=== PATIENT | female | born 1940 | race Caucasian/White ===

== ENCOUNTER 2018-04-16 07:04 | Day surgery (SDC) | payer OTHER, SELFPAY ==
[2018-04-16] MEDS ORDERED: SOD FERRIC GLUC COMPLX/SUCROSE 125 MG in NA CHLORIDE 0.9% 100 ML IV ONE (08:00)
[2018-04-16] MEDS ORDERED: INFLIXIMAB-DYYB 400 MG in NA CHLORIDE 0.9% 250 ML IV ONE (09:00)
[2018-04-16 09:45] VITALS: BMI 32.3
[2018-04-16 10:03] VITALS: BP 121/59; TEMP 96.7; O2SAT 97
== END 2018-04-16 11:30 | disposition home or self-care (01) ==
LOC: DS 07:04
PROVIDERS: ATTEND Internal Medicine Gastroenterology
PROC: 3E0330M Introduction of Antineoplastic, Monoclonal Antibody, into Peripheral Vein, Percutaneous Approach (ICD-10-PCS; principal; 2018-04-16)
DX: K50.10 Crohn's disease of large intestine without complications (principal); D64.9 Anemia, unspecified
CPT/HCPCS: 96365; 96366; J2916; Q5102

== ENCOUNTER 2018-07-15 12:48 | Emergency (ER) | payer OTHER, SELFPAY ==
[2018-07-15] MEDS ORDERED: BISACODYL 10 MG RECTAL SUPP ONE (13:22)
[2018-07-15] MEDS ORDERED: NA CHLORIDE 0.9% 1,000 ML ONE ×2 (13:22→16:56)
[2018-07-15] MEDS ORDERED: LACTULOSE 20 GM/30 ML UCUP ONE (13:22)
[2018-07-15 13:56] LABS: Absolute Lymphocytes (CBC) 0.9 K/uL (0.7-4.9); Absolute Monocytes 0.5 K/uL (0.1-1.3); Absolute Neutrophil 5.2 K/uL (1.8-8.0); Basophils % 0.7 % (0-1.3); Eosinophils % 2.6 % (0-4.4); Hematocrit 35.5 % (36.0-45.0); Lymphocytes % 13.8 % (15.3-44.8); MCH 29.2 pg (27.0-35.0); MCV 86.8 fL (80-100); MPV 9.3 fL (7.6-11.3); Monocytes % 7.6 % (3.3-12.3); RBC Red Blood Cell Count 4.09 M/uL (3.86-4.86)
[2018-07-15 14:10] LABS: ALT/SGPT 19 U/L (12-78); AST/SGOT 28 U/L (15-37); Albumin 3.5 g/dL (3.4-5.0); Alkaline Phosphatase 47 U/L (45-117); BUN Blood Urea Nitrogen 18 mg/dL (7-18); Bicarbonate 27 mmol/L (21-32); Bilirubin Direct 0.2 mg/dL (0-0.2); Bilirubin Total 0.6 mg/dL (0.2-1.0); CKMB Creatine Kinase MB 6.9 ng/mL (0.3-3.6); Creatine Phosphokinase 153 U/L (26-192); Glucose Level 96 mg/dL (74-106); Lipase 391 U/L (73-393); Magnesium 2.4 mg/dL (1.8-2.4); NT PRO-BNP 725 pg/mL (<450); Potassium 4.5 mmol/L (3.5-5.1); Protein, Total 7.6 g/dL (6.4-8.2); Sodium Level 141 mmol/L (136-145); Troponin (Emerg Dept Use Only) < 0.02 ng/mL (0.0-0.045)
[2018-07-15 14:17] LABS: Protime INR 0.97
--- NOTE | 2018-07-15 14:25 | RAD REPORT ---
EXAM DESCRIPTION: RAD - Chest Single View - 07/15/2018 2:17 pm CLINICAL HISTORY: ABDOMINAL DISTENTION Chest pain. COMPARISON: Abdomen 1 View (KUB) dated 09/12/2016; Abdomen 1 View (KUB) dated 01/26/2016; ABDOMEN ACU TE SERIES dated 12/03/2013; CHEST SINGLE VIEW dated 04/14/2013 FINDINGS: Portable technique limits examination quality. The lungs are grossly clear. The heart is mildly enlarged in size. No displaced fractures. IMPRESSION: Mild cardiomegaly.
--- NOTE | 2018-07-15 15:30 | RAD REPORT ---
EXAM DESCRIPTION: CTAbdomen Pelvis W Contrast - 07/15/2018 3:11 pm CLINICAL HISTORY: Abdominal pain. ABD PAIN COMPARISON: CT ABD PELVIS W CONTRAST dated 12/03/2013 TECHNIQUE: Biphasic CT imaging of the abdomen and pelvis was performed with 100 ml non-ionic IV cont rast. All CT scans are performed using dose optimization technique as appropriate and may include automated exposure control or mA/KV adjustment according to patient size. FINDINGS: The lung bases are clear. The liver, spleen, pancreas, adrenal glands and kidneys are within normal limits. Benign 3.8 cm right renal cyst noted. No bowel obstruction, free air, free fluid or abscess. The large amount of stool is seen in the colon , particularly the rectosigmoid colon, compatible with fecal retention. Aortoiliac atherosclerosis. N o evidence of significant lymphadenopathy. No suspicious bony findings. IMPRESSION: Fecal impaction.
--- NOTE | 2018-07-15 16:09 | ER ---
Nurse's Notes [facility] Name: Mis Carpenter Age: 78 yrs Sex: Female : 1940 Arrival Date: 07/15/2018 Time: 12:49 Bed 26 Private MD: Jesus Estes Diagnosis: Constipation Presentation: 07/15 13:07 Presenting complaint: Patient states: Last BM five days ago, reports feels as if its sg right there and just needs to come out, has a hx of chrons and reports having had this problem in the past, denies pain/fever/vomiting/chills, reports liquid stool when attempts to have a BM. Transition of care: patient was not received from another setting of care. Onset of symptoms was July 15, 2018. Risk Assessment: Do you want to hurt yourself or someone else? Patient reports no desire to harm self or others. Initial Sepsis Screen: Does the patient meet any 2 criteria? No. Patient's initial sepsis screen is negative. Does the patient have a suspected source of infection? No. Patient's initial sepsis screen is negative. Care prior to arrival: None. 13:07 Method Of Arrival: Ambulatory sg 13:07 Acuity: PATI 3 sg Historical: - Allergies: 13:53 SUCCINYLCHOLINE; aj1 13:53 Codeine; aj1 - Home Meds: 14:04 Pentasa Oral [Active]; Klonopin Oral [Active]; "Parkinsons med" [Active]; aj1 - PSHx: 13:09 cardiac cath; Hysterectomy; hemmoroidectomy; Tubal ligation; key knee replacements; sg Appendectomy; - Immunization history:: Adult Immunizations up to date. - Social history:: Smoking status: Patient/guardian denies using tobacco. - Ebola Screening: : Patient negative for fever greater than or equal to 101.5 degrees Fahrenheit, and additional compatible Ebola Virus Disease symptoms Patient denies exposure to infectious person Patient denies travel to an Ebola-affected area in the 21 days before illness onset No symptoms or risks identified at this time. - Family history:: not pertinent. Screenin:49 Abuse screen: Denies threats or abuse. Denies injuries from another. Nutritional aj1 screening: No deficits noted. Tuberculosis screening: No symptoms or risk factors identified. 20:02 Fall Risk None identified. aj1 Assessment: 13:35 Reassessment: Patient states that she would like to finish drinking her contrast prior aj1 to being medicated or being assessed. 13:38 Reassessment: Patient has finished her contrast, notified cardiopulmonary technician. aj1 13:49 General: Appears in no apparent distress. uncomfortable, Behavior is calm, cooperative, aj1 appropriate for age. Pain: Complains of pain in abdomen diffusely Pain does not radiate. Pain currently is 9 out of 10 on a pain scale. Quality of pain is described as crampy, Pain began 5 days ago Is intermittent. Neuro: Level of Consciousness is awake, alert, obeys commands, Oriented to person, place, time, situation, Speech is normal. Cardiovascular: Patient's skin is warm and dry. Respiratory: Airway is patent Respiratory effort is even, unlabored, Respiratory pattern is regular, symmetrical. GI: Abdomen is non-distended, Abd is soft and non tender X 4 quads. Reports that she has felt constipated for the past 5 days. Reports that her stools are the same consistency as normal, but the amount is less and she is having a sensation of fullness. : No signs and/or symptoms were reported regarding the genitourinary system. EENT: No signs and/or symptoms were reported regarding the EENT system. Derm: No signs and/or symptoms reported regarding the dermatologic system. Skin is pink, warm \\T\\ dry. normal. Musculoskeletal: No signs and/or symptoms reported regarding the musculoskeletal system. Circulation, motion, and sensation intact. 14:00 Reassessment: Patient states that suppositories never work for her, she has already aj1 tried that at home and it doesn't help. Patient states she would like to speak with the Dr prior to taking any medications. Notified Dr. Grady. 15:00 Reassessment: Patient states that she is getting impatient and would like to speak with aj1 the doctor. Notified Dr. Grady. 15:30 Reassessment: Dr. Grady at bedside. aj1 15:36 Reassessment: Patient states that she would like to go to the restroom to urinate prior aj1 to taking any more medications. Assisted patient to restroom, patient ambulated to restroom with minimal assistance, tolerated well. 15:50 Reassessment: Patient assisted back to bed, ambulated to room with minimal assistance, ajSaeed tolerated well. 16:00 Reassessment: Patient states that she is worried that when she has to have a BM that aj1 she will not be able to make it to the bathroom on time. Patient provided with a bedside commode, call light within reach. 16:30 Reassessment: Patient states that her blood pressure cuff is uncomfortable. Assisted aj1 patient in adjusting blood pressure cuff to be more comfortable. 16:40 Reassessment: Patient is concerned because she has not had a bowel movement yet. She ajSaeed does not want to be discharged because she has not had a bowel movement. Notified Dr. Grady of patient concern. 17:10 Reassessment: Patient is upset that she still has not had a bowel movement, and the aj1 doctor has not come back. Patient also states that she does not understand why she is getting IV fluids because she drinks a lot of water. Patient was asked if she would like to have IV fluids discontinued and patient states she is fine with them continuing the infusion. Notified Dr. Grady that the patient would like to speak with him. 17:45 Reassessment: Patient states that she is uncomfortable on the stretcher. Patient aj1 assisted to a more comfortable position, with the head of the bed at a higher level. Patient tolerated well. 18:30 Reassessment: Patient appears in no apparent distress at this time. No changes from aj1 previously documented assessment. Patient and/or family updated on plan of care and expected duration. Pain level reassessed. Patient is alert, oriented x 3, equal unlabored respirations, skin warm/dry/pink. Dr. Grady at bedside. 18:40 Reassessment: Patient assisted to [facility] by NIMCO Mahan. Patient tolerated well. aj1 18:45 Reassessment: Patient states that the rectal exam Dr. Grady did, did not help her. aj1 She would like to speak with him again. Notified Dr. Grady of patient request. 19:00 Reassessment: Dr. Grady at bedside to talk to patient. aj1 19:20 Reassessment: Patient states that she needs some briefs to go home with, because she aj1 accidentally went to the bathroom on the clothes she came in. Patient provided with a brief and hospital gown to travel home in. Vital Signs: 13:09 BP 105 / 48; Pulse 87; Resp 16; Temp 97.9; Pulse Ox 100% on R/A; jp3 14:00 BP 125 / 71 RA Sitting (auto/lg); Pulse 65; Resp 20 S; Pulse Ox 97% on R/A; Pain 3/10; jp3 15:16 BP 118 / 58 RA Sitting (auto/lg); Pulse 72; Resp 20; Pulse Ox 96% on R/A; jp3 16:16 BP 140 / 81; Pulse 73; Resp 18; Pulse Ox 96% on R/A; aj1 17:01 BP 134 / 75; Pulse 62; Resp 18; Pulse Ox 95% on R/A; aj1 18:24 BP 157 / 87; Pulse 75; Resp 18; Pulse Ox 96% on R/A; aj1 ED Course: 12:49 Patient arrived in ED. sb2 12:49 Jesus Estes DO is Private Physician. sb2 13:08 Triage completed. sg 13:09 Arm band placed on. sg 13:10 Jose Grady MD is Attending Physician. ashli 13:12 Mariana Pete, RN is Primary Nurse. aj1 13:20 Initial lab(s) drawn, by sc, sent to lab. Inserted saline lock: 22 gauge in left jp3 antecubital area, using aseptic technique. Blood collected. 13:34 Lipase Sent. jp3 13:34 Basic Metabolic Panel Sent. jp3 13:34 CBC with Diff Sent. jp3 13:35 Ckmb Sent. jp3 13:35 CPK Sent. jp3 13:35 LFT's Sent. jp3 13:35 Magnesium Sent. jp3 13:35 NT PRO-BNP Sent. jp3 13:35 PT-INR Sent. jp3 13:35 Ptt, Activated Sent. jp3 13:35 Troponin (emerg Dept Use Only) Sent. jp3 13:36 Bed in low position. Call light in reach. Side rails up X 1. occup therapist on. Pulse jp3 ox on. NIBP on. 13:39 EKG done, by install technician. reviewed by Jose Grady MD. sm3 13:51 No provider procedures requiring assistance completed. aj1 14:00 Warm blanket given. jp3 14:18 XRAY Chest (1 view) In Process Unspecified. EDMS 15:12 CT Abd/Pelvis - W/Contrast In Process Unspecified. EDFL 16:08 Jesus Estes DO is Referral Physician. [facility] 16:08 Lobito Ramos MD is Referral Physician. [facility] 20:01 IV discontinued, intact, bleeding controlled, No redness/swelling at site. Pressure aj1 dressing applied. Administered Medications: 15:35 Drug: Lactulose 30 grams Volume: 45 ml; Route: PO; aj1 20:03 Follow up: Response: No adverse reaction aj1 16:00 Drug: Dulcolax Suppository 10 mg Route: NM; aj1 20: Follow up: Response: No adverse reaction; No change in condition aj1 16:00 Drug: NS 0.9% 500 ml Route: IV; Rate: bolus; Site: left antecubital; aj1 17:00 Follow up: IV Status: Completed infusion; IV Intake: 500ml aj1 16:00 Drug: NS 0.9% 1000 ml Route: IV; Rate: 125 ml/hr; Site: left antecubital; aj1 20:04 Follow up: IV Status: Completed infusion; IV Intake: 500ml aj1 Intake: 17:00 IV: 500ml; Total: 500ml. aj1 20:04 IV: 500ml; Total: 1000ml. aj1 Outcome: 16:08 Discharge ordered by . [facility] 20:03 Discharged to home via wheelchair. aj1 20:03 Condition: stable 20:03 Discharge instructions given to patient, family, Instructed on discharge instructions, follow up and referral plans. medication usage, Demonstrated understanding of instructions, follow-up care, medications, Prescriptions given X 3. 20:04 Patient left the ED. aj1 Signatures: Dispatcher [employer] EDMS Mariana Pete, RN RN aj1 Enzo Phillip, ZEHRA RN Jose Marcano MD MD cha Billeau, Sheri sb2 Yesica Blackman 3 Jean Garsia jp3 Corrections: (The following items were deleted from the chart) 14:07 13:09 Pulse 87bpm; Resp 16bpm; Pulse Ox 100% RA; Temp 97.9F; sg jp3
--- NOTE | 2018-07-15 16:09 | EDPHYS ---
Physician Documentation [facility] Name: Mis Carpenter Age: 78 yrs Sex: Female : 1940 Arrival Date: 07/15/2018 Time: 12:49 Bed 26 Private MD: Jesus Estes ED Physician Jose Grady HPI: 07/15 15:25 This 78 yrs old Female presents to ER via Ambulatory with complaints of ashli Constipation. 15:25 The patient presents with abdominal pain in the upper abdomen, in the lower abdomen, ashli abdominal distention in the upper abdomen, in the lower abdomen. Onset: The symptoms/episode began/occurred 6 day(s) ago. The symptoms do not radiate. Associated signs and symptoms: none. The symptoms are described as crampy. Severity of pain: At its worst the pain was mild in the emergency department the pain is unchanged. The patient has not experienced similar symptoms in the past. Historical: - Allergies: 13:53 SUCCINYLCHOLINE; aj1 13:53 Codeine; aj1 - Home Meds: 14:04 Pentasa Oral [Active]; Klonopin Oral [Active]; "Parkinsons med" [Active]; aj1 - PSHx: 13:09 cardiac cath; Hysterectomy; hemmoroidectomy; Tubal ligation; key knee replacements; sg Appendectomy; - Immunization history:: Adult Immunizations up to date. - Social history:: Smoking status: Patient/guardian denies using tobacco. - Ebola Screening: : Patient negative for fever greater than or equal to 101.5 degrees Fahrenheit, and additional compatible Ebola Virus Disease symptoms Patient denies exposure to infectious person Patient denies travel to an Ebola-affected area in the 21 days before illness onset No symptoms or risks identified at this time. - Family history:: not pertinent. ROS: 15:25 Constitutional: Negative for fever, chills, and weight loss, Eyes: Negative for injury, ashli pain, redness, and discharge, ENT: Negative for injury, pain, and discharge, Neck: Negative for injury, pain, and swelling, Cardiovascular: Negative for chest pain, palpitations, and edema, Respiratory: Negative for shortness of breath, cough, wheezing, and pleuritic chest pain, Back: Negative for injury and pain, : Negative for injury, bleeding, discharge, and swelling, MS/Extremity: Negative for injury and deformity, Skin: Negative for injury, rash, and discoloration, Neuro: Negative for headache, weakness, numbness, tingling, and seizure, Psych: Negative for depression, anxiety, suicide ideation, homicidal ideation, and hallucinations, Allergy/Immunology: Negative for hives, rash, and allergies, Endocrine: Negative for neck swelling, polydipsia, polyuria, polyphagia, and marked weight changes. 15:25 Abdomen/GI: Positive for abdominal pain, nausea, of the right upper quadrant, left upper quadrant, right lower quadrant and left lower quadrant. Exam: 15:25 Constitutional: This is a well developed, well nourished patient who is awake, alert, ashli and in no acute distress. Head/Face: Normocephalic, atraumatic. Eyes: Pupils equal round and reactive to light, extra-ocular motions intact. Lids and lashes normal. Conjunctiva and sclera are non-icteric and not injected. Cornea within normal limits. Periorbital areas with no swelling, redness, or edema. ENT: Nares patent. No nasal discharge, no septal abnormalities noted. Tympanic membranes are normal and external auditory canals are clear. Oropharynx with no redness, swelling, or masses, exudates, or evidence of obstruction, uvula midline. Mucous membranes moist. Neck: Trachea midline, no thyromegaly or masses palpated, and no cervical lymphadenopathy. Supple, full range of motion without nuchal rigidity, or vertebral point tenderness. No Meningismus. Chest/axilla: Normal chest wall appearance and motion. Nontender with no deformity. No lesions are appreciated. Cardiovascular: Regular rate and rhythm with a normal S1 and S2. No gallops, murmurs, or rubs. Normal PMI, no JVD. No pulse deficits. Respiratory: Lungs have equal breath sounds bilaterally, clear to auscultation and percussion. No rales, rhonchi or wheezes noted. No increased work of breathing, no retractions or nasal flaring. Back: No spinal tenderness. No costovertebral tenderness. Full range of motion. Skin: Warm, dry with normal turgor. Normal color with no rashes, no lesions, and no evidence of cellulitis. MS/ Extremity: Pulses equal, no cyanosis. Neurovascular intact. Full, normal range of motion. Neuro: Awake and alert, GCS 15, oriented to person, place, time, and situation. Cranial nerves II-XII grossly intact. Motor strength 5/5 in all extremities. Sensory grossly intact. Cerebellar exam normal. Normal gait. Psych: Awake, alert, with orientation to person, place and time. Behavior, mood, and affect are within normal limits. 15:25 Abdomen/GI: Inspection: abdomen appears normal, Bowel sounds: normal, Palpation: mild abdominal tenderness, in all quadrants, Liver: no appreciated palpable abnormalities, Hernia: not appreciated. Vital Signs: 13:09 BP 105 / 48; Pulse 87; Resp 16; Temp 97.9; Pulse Ox 100% on R/A; jp3 14:00 BP 125 / 71 RA Sitting (auto/lg); Pulse 65; Resp 20 S; Pulse Ox 97% on R/A; Pain 3/10; jp3 15:16 BP 118 / 58 RA Sitting (auto/lg); Pulse 72; Resp 20; Pulse Ox 96% on R/A; jp3 16:16 BP 140 / 81; Pulse 73; Resp 18; Pulse Ox 96% on R/A; aj1 17:01 BP 134 / 75; Pulse 62; Resp 18; Pulse Ox 95% on R/A; aj1 18:24 BP 157 / 87; Pulse 75; Resp 18; Pulse Ox 96% on R/A; aj1 MDM: 13:10 Patient medically screened. [facility] 15:29 Data reviewed: vital signs, nurses notes, lab test result(s), EKG, radiologic studies, [facility] CT scan, plain films. 07/15 13:09 Order name: Basic Metabolic Panel; Complete Time: 15:33 [facility] 07/15 13:09 Order name: CBC with Diff; Complete Time: 15:33 [facility] 07/15 13:09 Order name: Ckmb; Complete Time: 15:33 [facility] 07/15 13:09 Order name: CPK; Complete Time: 15:33 [facility] 07/15 13:09 Order name: LFT's; Complete Time: 15:33 [facility] 07/15 13:09 Order name: Magnesium; Complete Time: 15:33 [facility] 07/15 13:09 Order name: NT PRO-BNP; Complete Time: 15:33 [facility] 07/15 13:09 Order name: PT-INR; Complete Time: 15:33 [facility] 07/15 13:09 Order name: Ptt, Activated; Complete Time: 15:33 [facility] 07/15 13:09 Order name: Troponin (emerg Dept Use Only); Complete Time: 15:33 [facility] 07/15 13:09 Order name: XRAY Chest (1 view); Complete Time: 15:33 [facility] 07/15 13:09 Order name: Lipase; Complete Time: 15:33 [facility] 07/15 13:10 Order name: Urine Culture [facility] 07/15 16:28 Order name: Urine Dipstick--Ancillary (enter results) 07/15 13:09 Order name: EKG; Complete Time: 13:10 [facility] 07/15 13:09 Order name: Cardiac monitoring; Complete Time: 14:05 [facility] 07/15 13:09 Order name: EKG - Nurse/Tech; Complete Time: 13:33 [facility] 07/15 13:09 Order name: IV Saline Lock; Complete Time: 13:33 [facility] 07/15 13:09 Order name: Labs collected and sent; Complete Time: 13:33 [facility] 07/15 13:09 Order name: O2 Per Protocol; Complete Time: 13:33 [facility] 07/15 13:09 Order name: O2 Sat Monitoring; Complete Time: 13:33 [facility] 07/15 13:09 Order name: Urine Dipstick-Ancillary (obtain specimen); Complete Time: 17:43 [facility] 07/15 13:09 Order name: CT Abd/Pelvis - W/Contrast; Complete Time: 15:33 [facility] Administered Medications: 15:35 Drug: Lactulose 30 grams Volume: 45 ml; Route: PO; aj1 20:03 Follow up: Response: No adverse reaction aj1 16:00 Drug: Dulcolax Suppository 10 mg Route: TX; aj1 20:03 Follow up: Response: No adverse reaction; No change in condition aj1 16:00 Drug: NS 0.9% 500 ml Route: IV; Rate: bolus; Site: left antecubital; aj1 17:00 Follow up: IV Status: Completed infusion; IV Intake: 500ml aj1 16:00 Drug: NS 0.9% 1000 ml Route: IV; Rate: 125 ml/hr; Site: left antecubital; aj1 20:04 Follow up: IV Status: Completed infusion; IV Intake: 500ml aj Disposition: 07/15/18 16:08 Discharged to Home. Impression: Constipation. - Condition is Stable. - Discharge Instructions: Constipation, Adult, How to Take a Sitz Bath, Fecal Impaction. - Prescriptions for Lactulose 10 gram/15 mL Oral Solution - take 30 milliliter by ORAL route once daily; 300 milliliter. Dulcolax 10 mg Rectal Suppository - insert 1 suppository by RECTAL route every 12 hours As needed; 10 suppository. Miralax 17 gram/dose Oral - take 1 packet by ORAL route once daily dilute powder in 8 ounces of water or juice; 14 packet. - Medication Reconciliation Form, Thank You Letter, Antibiotic Education, Prescription Opioid Use form. - Follow up: Jesus Estes DO; When: 2 - 3 days; Reason: Recheck today's complaints, Continuance of care, Re-evaluation by your physician. Follow up: Lobito Ramos MD; When: 2 - 3 days; Reason: Recheck today's complaints, Continuance of care, Re-evaluation by your physician. - Problem is new. - Symptoms have improved. Signatures: Dispatcher [employer] EDRI Mariana Pete RN RN aj1 Enzo Phillip RN RN Jose Grady MD MD cha Corrections: (The following items were deleted from the chart) 20:04 16:08 07/15/2018 16:08 Discharged to Home. Impression: Constipation. Condition is aj1 Stable. Forms are Medication Reconciliation Form, Thank You Letter, Antibiotic Education, Prescription Opioid Use. Follow up: Jesus Estes; When: 2 - 3 days; Reason: Recheck today's complaints, Continuance of care, Re-evaluation by your physician. Follow up: Lobito Ramos; When: 2 - 3 days; Reason: Recheck today's complaints, Continuance of care, Re-evaluation by your physician. Problem is new. Symptoms have improved. ashli
[2018-07-15 16:31] LABS: Urine Blood NEGATIVE (NEG); Urine Glucose NEGATIVE (NEG); Urine Protein NEGATIVE (NEG); Urine pH 5.5 (5.0-7.0)
--- NOTE | 2018-07-15 19:24 | EKG ---
Test Date: 2018-07-15 Test Time: 13:25:38 Newcomer Hostess: LARA MEASUREMENT RESULTS: Intervals: Rate: 62 NM: 136 QRSD: 88 QT: 396 QTc: 401 [place]: P: 25 NM: 136 QRS: -11 T: 26 INTERPRETIVE STATEMENTS: Normal sinus rhythm Minimal voltage criteria for LVH, may be normal variant Possible Anterior infarct, age undetermined Abnormal ECG Compared to ECG 04/14/2013 13:59:41 Left ventricular hypertrophy now present Myocardial infarct finding now present Electronically Signed On 07-15-18 19:22:46 CDT by Derek Reilly
[2018-07-15 20:12] VITALS: TEMP 97.9
[2018-07-15 20:17] VITALS: BP 157/87; O2SAT 96
== END 2018-07-15 20:04 | disposition home or self-care (01) ==
LOC: ER 12:48
DX: K59.00 Constipation, unspecified (principal); G20 Parkinson's disease; Z88.5 Allergy status to narcotic agent; Z88.8 Allergy status to other drugs, medicaments and biological substances
CPT/HCPCS: 36415; 71045; 74177; 80048; 80076; 81003; 82550; 82553; 83690; 83735; 83880; 84484; 85025; 85610; 85730; 87086; 87088; 93005; 96360; 96361; 99285; J7030 ×2; Q9967

== ENCOUNTER 2018-10-18 08:23 | Day surgery (SDC) | payer OTHER, SELFPAY ==
[2018-10-18] MEDS ORDERED: INFLIXIMAB-DYYB 400 MG in NA CHLORIDE 0.9% 250 ML IV ONE (09:00)
[2018-10-18 13:29] VITALS: BP 114/38; TEMP 98; O2SAT 94
== END 2018-10-18 12:00 | disposition home or self-care (01) ==
LOC: DS 08:23
PROVIDERS: ATTEND Internal Medicine Gastroenterology
DX: K50.90 Crohn's disease, unspecified, without complications (principal)
CPT/HCPCS: 96365; 96366; Q5103

== ENCOUNTER 2018-11-23 15:49 | Emergency (ER) | payer OTHER, SELFPAY ==
--- NOTE | 2018-11-23 17:01 | RAD REPORT ---
EXAM DESCRIPTION: CT - Head Brain Wo Cont - 11/23/2018 4:37 pm CLINICAL HISTORY: Weakness, multiple falls, head injury COMPARISON: None. TECHNIQUE: Axial 5 mm thick images of the head were obtained without IV contrast. All CT scans are performed using dose optimization technique as appropriate and may include automated exposure control or mA/KV adjustment according to patient size. FINDINGS: No intracranial hemorrhage, mass, edema or shift of mid-line structures. No acute infarcti on changes seen. Mild to moderate atrophy and chronic ischemic changes. Ventricles are in proportion to volume loss. Arterial and physiologic calcifications are present. Mastoid air cells and visualized portions of the paranasal sinuses are clear. No acute bony findings. IMPRESSION: Negative non-contrast CT head examination for acute finding. Mild to moderate atrophy and chronic ischemic change.
[2018-11-23 17:19] LABS: Absolute Lymphocytes (CBC) 1.8 K/uL (0.7-4.9); Absolute Neutrophil 6.7 K/uL (1.8-8.0); Eosinophils % 3.8 % (0-4.4); Hematocrit 39.9 % (36.0-45.0); Lymphocytes % 17.9 % (15.3-44.8); MPV 9.8 fL (7.6-11.3); RBC Red Blood Cell Count 4.85 M/uL (3.86-4.86)
[2018-11-23] MEDS ORDERED: NA CHLORIDE 0.9% 500 ML ONE ×2 (17:21→19:02)
[2018-11-23 17:46] LABS: Potassium 4.5 mmol/L (3.5-5.1); Thyroid Stimulating Hormone 2.89 uIU/mL (0.360-3.740)
--- NOTE | 2018-11-23 18:20 | ER ---
Nurse's Notes [facility] Name: Mis Carpenter Age: 78 yrs Sex: Female : 1940 Arrival Date: 11/23/2018 Time: 15:49 Bed 5 Private MD: Jesus Estes Diagnosis: Dehydration Presentation: 11/23 16:13 Presenting complaint: Patient states: Weakness for 2-3 days, reports had blood work sg recently in September and everything was fine, well recently had blood work and the doctor told me to get to the ER for evaluation due to lab results, pt reports having fallen several times, bruising noted to the right side of face right shoulder and right forearm with a dressing that was applied yesterday per success coach. Transition of care: patient was not received from another setting of care. Onset of symptoms was November 21, 2018. Risk Assessment: Do you want to hurt yourself or someone else? Patient reports no desire to harm self or others. Initial Sepsis Screen: Does the patient meet any 2 criteria? No. Patient's initial sepsis screen is negative. Does the patient have a suspected source of infection? No. Patient's initial sepsis screen is negative. Care prior to arrival: None. 16:13 Method Of Arrival: Wheelchair sg 16:13 Acuity: PATI 3 sg Historical: - Allergies: 16:17 Codeine; sg 16:17 SUCCINYLCHOLINE; sg - PSHx: 16:17 cardiac cath; Hysterectomy; hemmoroidectomy; Tubal ligation; key knee replacements; sg Appendectomy; - Immunization history:: Adult Immunizations up to date. - Family history:: not pertinent. - Ebola Screening: : Patient denies travel to an Ebola-affected area in the 21 days before illness onset. - Social history:: Smoking status: Patient/guardian denies using tobacco. - Hospitalizations: : No recent hospitalization is reported. Screenin:15 Abuse screen: Denies threats or abuse. Denies injuries from another. Nutritional aj1 screening: No deficits noted. Tuberculosis screening: No symptoms or risk factors identified. 20:25 Fall Risk Fall in past 12 months (25 points). No secondary diagnosis (0 pts). No IV (0 aj1 pts). Ambulatory Aid- Crutches/Cane/Walker (15 pts). Gait- Weak (10 pts.). Mental Status- Oriented to own ability (0 pts). Total Mathews Fall Scale indicates High Risk Score (45 or more points). As available patient and family educated on Fall Prevention Program and Strategies. Assessment: 16:15 General: Appears in no apparent distress. comfortable, Behavior is calm, cooperative, aj1 appropriate for age. Neuro: Level of Consciousness is awake, alert, obeys commands, Oriented to person, place, time, situation, Moves all extremities. Weakness Speech is normal, Facial symmetry appears normal, Reports generalized weakness. Cardiovascular: Patient's skin is warm and dry. Respiratory: Airway is patent Respiratory effort is even, unlabored, Respiratory pattern is regular, symmetrical. GI: No signs and/or symptoms were reported involving the gastrointestinal system. : No signs and/or symptoms were reported regarding the genitourinary system. EENT: No signs and/or symptoms were reported regarding the EENT system. Derm: Bruising that is on forehead, right eye and anterior aspect of right shoulder. Derm: Skin is pink, warm \T\ dry. normal. Musculoskeletal: No signs and/or symptoms reported regarding the musculoskeletal system. Circulation, motion, and sensation intact. 16:30 Reassessment: Patient transported to CT via stretcher. aj1 17:30 Reassessment: Patient appears in no apparent distress at this time. No changes from aj1 previously documented assessment. Patient and/or family updated on plan of care and expected duration. Pain level reassessed. Patient is alert, oriented x 3, equal unlabored respirations, skin warm/dry/pink. Patient reports continued feelings of dizziness and weakness. 17:30 Reassessment: Patient appears in no apparent distress at this time. No changes from aj1 previously documented assessment. Patient and/or family updated on plan of care and expected duration. Pain level reassessed. Patient is alert, oriented x 3, equal unlabored respirations, skin warm/dry/pink. 18:30 Reassessment: Patient appears in no apparent distress at this time. No changes from aj1 previously documented assessment. Patient and/or family updated on plan of care and expected duration. Pain level reassessed. Patient is alert, oriented x 3, equal unlabored respirations, skin warm/dry/pink. 19:30 Reassessment: Patient appears in no apparent distress at this time. No changes from aj1 previously documented assessment. Patient and/or family updated on plan of care and expected duration. Pain level reassessed. Patient is alert, oriented x 3, equal unlabored respirations, skin warm/dry/pink. Patient states that she is feeling much better now and she is ready to go home as soon as her fluids are finished. Vital Signs: 16:15 BP 102 / 70; Pulse 78; Resp 19 S; Temp 97.7; Pulse Ox 94% on R/A; Weight 97.52 kg; sg Height 5 ft. 2 in. (157.48 cm); Pain 3/10; 17:20 BP 88 / 62; Pulse 65; Resp 18; Pulse Ox 97% ; aj1 17:29 BP 94 / 67; Pulse 60; Resp 18; Pulse Ox 99% on R/A; aj1 17:35 BP 107 / 84; Pulse 67; Resp 18; Pulse Ox 100% on R/A; aj1 18:30 BP 99 / 67; Pulse 62; Resp 18; Pulse Ox 99% on R/A; aj1 19:05 BP 111 / 56; Pulse 65; Resp 18; Pulse Ox 97% on R/A; aj1 20:08 BP 114 / 59; Pulse 70; Resp 18; Pulse Ox 97% on R/A; aj1 16:15 Body Mass Index 39.32 (97.52 kg, 157.48 cm) ED Course: 15:49 Patient arrived in ED. as 15:50 Jesus Estes DO is Private Physician. as 16:05 Robert Marx MD is Attending Physician. rn 16:11 Mariana Pete RN is Primary Nurse. aj1 16:15 Triage completed. sg 16:15 Arm band placed on. sg 16:15 No provider procedures requiring assistance completed. aj1 16:30 Missed attempt(s): 22 gauge in left antecubital area. Bleeding controlled, band aid aj1 applied, catheter tip intact. 16:36 CT completed. Patient moved to CT via stretcher. Patient moved back from CT. bq 16:37 CT Head Brain wo Cont In Process Unspecified. EDMS 17:31 Patient has correct armband on for positive identification. aj1 18:20 Jesus Estes DO is Referral Physician. rn 20:24 IV discontinued, intact, bleeding controlled, No redness/swelling at site. Pressure aj1 dressing applied. Administered Medications: 17:32 Drug: NS 0.9% 500 ml Route: IV; Rate: bolus; Site: left forearm; aj1 19:03 Drug: NS 0.9% 500 ml Route: IV; Rate: bolus; Site: right antecubital; aj1 Outcome: 18:20 Discharge ordered by MD. rn 20:25 Discharged to home via wheelchair, with family. aj1 20:25 Condition: stable 20:25 Discharge instructions given to patient, Instructed on discharge instructions, follow up and referral plans. Demonstrated understanding of instructions, follow-up care. 20:26 Patient left the ED. aj1 Signatures: Dispatcher [employer] EDMS Mariana Pete RN RN aj1 Enzo Phillip RN RN sg Quilty, Betty bq Martinez, Amelia as Nieto, Roman, MD MD engine turner: (The following items were deleted from the chart) :34 16:32 General: Appears in no apparent distress. comfortable, Behavior is calm, aj1 cooperative, appropriate for age, aj1 :34 16:32 Neuro: Level of Consciousness is awake, alert, obeys commands, Oriented to aj1 person, place, time, situation, Moves all extremities. Weakness Speech is normal, Facial symmetry appears normal, Reports generalized weakness. aj1 16:34 16:32 Cardiovascular: Patient's skin is warm and dry. aj1 aj1 16:34 16:32 Respiratory: Airway is patent Respiratory effort is even, unlabored, Respiratory aj1 pattern is regular, symmetrical, aj1 16:34 16:32 GI: No signs and/or symptoms were reported involving the gastrointestinal system. aj1 aj1 16:34 16:32 : No signs and/or symptoms were reported regarding the genitourinary system. aj1aj1 16:34 16:32 EENT: No signs and/or symptoms were reported regarding the EENT system. aj1 aj1 16:34 16:32 Derm: Skin is pink, warm \T\ dry. normal, aj1 aj1 16:34 16:32 Musculoskeletal: No signs and/or symptoms reported regarding the musculoskeletal aj1 system. Circulation, motion, and sensation intact. aj1 16:34 16:32 Derm: Bruising that is on forehead, right eye and anterior aspect of right aj1 shoulder aj1
--- NOTE | 2018-11-23 18:21 | EDPHYS ---
Physician Documentation [facility] Name: Mis Carpenter Age: 78 yrs Sex: Female : 1940 Arrival Date: 11/23/2018 Time: 15:49 Bed 5 Private MD: Jesus Estes ED Physician Robert Marx HPI: 11/23 16:17 This 78 yrs old Female presents to ER via Wheelchair with complaints of rn Weakness. 16:17 The patient presents to the emergency department with weakness of the entire body, rn generalized weakness. Onset: The symptoms/episode began/occurred 3 week(s) ago. Severity of symptoms: At their worst the symptoms were moderate in the emergency department the symptoms are unchanged. The patient has not experienced similar symptoms in the past. Reports generalized weakness, began 3 weeks ago, has hx of crohn's and reports has been anemic before. + recurrent falls lately, last one a few days ago with facial bruising. Denies blood in stool, no emesis, no abd pain/chest pain/sob. . Historical: - Allergies: 16:17 Codeine; sg 16:17 SUCCINYLCHOLINE; sg - PSHx: 16:17 cardiac cath; Hysterectomy; hemmoroidectomy; Tubal ligation; key knee replacements; sg Appendectomy; - Immunization history:: Adult Immunizations up to date. - Family history:: not pertinent. - Ebola Screening: : Patient denies travel to an Ebola-affected area in the 21 days before illness onset. - Social history:: Smoking status: Patient/guardian denies using tobacco. - Hospitalizations: : No recent hospitalization is reported. ROS: 16:17 Constitutional: Negative for fever, chills, and weight loss, Eyes: Negative for injury, rn pain, redness, and discharge, Neck: Negative for injury, pain, and swelling, Cardiovascular: Negative for chest pain, palpitations, and edema, Respiratory: Negative for cough, wheezing, and pleuritic chest pain, Abdomen/GI: Negative for abdominal pain, nausea, vomiting, diarrhea, and constipation, MS/Extremity: Negative for injury and deformity, Skin: Negative for injury, rash, and discoloration, Neuro: Negative for headache, numbness, tingling, and seizure. Exam: 16:17 Constitutional: This is a well developed, well nourished patient who is awake, alert, rn and in no acute distress. Head/Face: Normocephalic, atraumatic. Eyes: Pupils equal round and reactive to light, extra-ocular motions intact. Cardiovascular: Regular rate and rhythm, No pulse deficits. Respiratory: Lungs have equal breath sounds bilaterally, clear to auscultation. No increased work of breathing, no retractions or nasal flaring. Abdomen/GI: soft, non-tender MS/ Extremity: Pulses equal, no cyanosis. Neurovascular intact. Full, normal range of motion. Equal circumference. Neuro: Awake and alert, GCS 15, oriented to person, place, time, and situation. Cranial nerves II-XII grossly intact. Motor strength 4/5 in all extremities. Sensory grossly intact. Vital Signs: 16:15 BP 102 / 70; Pulse 78; Resp 19 S; Temp 97.7; Pulse Ox 94% on R/A; Weight 97.52 kg; sg Height 5 ft. 2 in. (157.48 cm); Pain 3/10; 17:20 BP 88 / 62; Pulse 65; Resp 18; Pulse Ox 97% ; aj1 17:29 BP 94 / 67; Pulse 60; Resp 18; Pulse Ox 99% on R/A; aj1 17:35 BP 107 / 84; Pulse 67; Resp 18; Pulse Ox 100% on R/A; aj1 18:30 BP 99 / 67; Pulse 62; Resp 18; Pulse Ox 99% on R/A; aj1 19:05 BP 111 / 56; Pulse 65; Resp 18; Pulse Ox 97% on R/A; aj1 20:08 BP 114 / 59; Pulse 70; Resp 18; Pulse Ox 97% on R/A; aj1 16:15 Body Mass Index 39.32 (97.52 kg, 157.48 cm) sg MDM: 16:05 Patient medically screened. rn 18:18 Data reviewed: vital signs, nurses notes, lab test result(s), radiologic studies, and rn as a result, I will discharge patient. Counseling: I had a detailed discussion with the patient and/or guardian regarding: the historical points, exam findings, and any diagnostic results supporting the discharge/admit diagnosis, lab results, radiology results, the need for outpatient follow up, to return to the emergency department if symptoms worsen or persist or if there are any questions or concerns that arise at home. Response to treatment: the patient's symptoms have markedly improved after treatment, and as a result, I will discharge patient. Special discussion: I discussed with the patient/guardian in detail that at this point there is no indication for admission to the hospital. It is understood, however, that if the symptoms persist or worsen the patient needs to return immediately for re-evaluation. ED course: Normal h/h, + dehydration, much better after fluids, is on diuretic, recommend pcp f/u for diuretic talk and rehydration. Family states she feels much better. . 11/23 16:16 Order name: CBC with Diff; Complete Time: 18:12 rn 11/23 16:16 Order name: Basic Metabolic Panel; Complete Time: 18:12 rn 11/23 16:16 Order name: CK; Complete Time: 18:12 rn 11/23 16:16 Order name: TSH; Complete Time: 18:12 rn 11/23 16:16 Order name: T4 Free; Complete Time: 18:12 rn 11/23 16:16 Order name: IV Start; Complete Time: 17:06 rn 11/23 16:16 Order name: CT Head Brain wo Cont; Complete Time: 17:28 rn 11/23 16:16 Order name: EKG; Complete Time: 16:17 rn 11/23 16:16 Order name: EKG - Nurse/Tech; Complete Time: 17:34 rn Administered Medications: 17:32 Drug: NS 0.9% 500 ml Route: IV; Rate: bolus; Site: left forearm; aj1 19:03 Drug: NS 0.9% 500 ml Route: IV; Rate: bolus; Site: right antecubital; aj1 Disposition: 11/23/18 18:20 Discharged to Home. Impression: Dehydration. - Condition is Stable. - Discharge Instructions: Dehydration, Adult. - Medication Reconciliation Form, Thank You Letter, Antibiotic Education, Prescription Opioid Use form. - Follow up: Jesus Estes DO; When: As needed; Reason: Recheck today's complaints, Re-evaluation by your physician. - Problem is new. - Symptoms have improved. Signatures: Dispatcher [employer] Mariana Andrews RN RN aj1 Enzo Phillip RN RN sg Nieto, Roman, MD MD underwriting internship: (The following items were deleted from the chart) 20: 18:20 11/23/2018 18:20 Discharged to Home. Impression: Dehydration. Condition is aj1 Stable. Forms are Medication Reconciliation Form, Thank You Letter, Antibiotic Education, Prescription Opioid Use. Follow up: Jesus Estes; When: As needed; Reason: Recheck today's complaints, Re-evaluation by your physician. Problem is new. Symptoms have improved. rn
[2018-11-23 20:32] VITALS: TEMP 97.7
[2018-11-23 20:38] VITALS: O2SAT 97
[2018-11-23 20:39] VITALS: BP 114/59
--- NOTE | 2018-11-24 07:06 | EKG ---
Test Date: 2018-11-23 Test Time: 17:26:48 Mixer Helper: MARTHA MEASUREMENT RESULTS: Intervals: Rate: 61 CO: 150 QRSD: 86 QT: 440 QTc: 442 [place]: P: 61 CO: 150 QRS: 36 T: 52 INTERPRETIVE STATEMENTS: Normal sinus rhythm Nonspecific ST abnormality Abnormal ECG Compared to ECG 07/15/2018 13:25:38 ST (T wave) deviation now present Left ventricular hypertrophy no longer present Myocardial infarct finding no longer present Electronically Signed On 11-24-18 07:04:47 ASSISTANT ENGINEER by Derek Reilly
== END 2018-11-23 20:26 | disposition home or self-care (01) ==
LOC: ER 15:49
DX: E86.0 Dehydration (principal); Z88.5 Allergy status to narcotic agent; Z88.8 Allergy status to other drugs, medicaments and biological substances
CPT/HCPCS: 36415; 70450; 80048; 82550; 84439; 84443; 85025; 93005; 99284

== ENCOUNTER 2018-12-20 08:45 | Day surgery (SDC) | payer OTHER, SELFPAY ==
[2018-12-20] MEDS ORDERED: INFLIXIMAB-DYYB 400 MG in NA CHLORIDE 0.9% 250 ML IV ONE (09:00)
[2018-12-20] MEDS ORDERED: NA CHLORIDE 0.9% 250 ML ONE (09:19)
[2018-12-20 10:01] VITALS: BMI 31.7
[2018-12-20 12:12] VITALS: BP 98/51; TEMP 98.8; O2SAT 99
== END 2018-12-20 12:00 | disposition home or self-care (01) ==
LOC: DS 08:45
PROVIDERS: ATTEND Internal Medicine Gastroenterology
DX: K50.90 Crohn's disease, unspecified, without complications (principal)
CPT/HCPCS: 96365; 96366; Q5103

== ENCOUNTER 2019-02-14 08:51 | Day surgery (SDC) | payer OTHER, SELFPAY ==
[2019-02-14] MEDS ORDERED: INFLIXIMAB-DYYB 400 MG in NA CHLORIDE 0.9% 250 ML IV ONE (09:00)
[2019-02-14 10:07] VITALS: BMI 30.4
[2019-02-14] MEDS ORDERED: NA CHLORIDE 0.9% 250 ML ONE (12:01)
[2019-02-14 12:14] VITALS: BP 102/40; TEMP 98.5; O2SAT 97
== END 2019-02-14 12:11 | disposition home or self-care (01) ==
LOC: DS 08:51
PROVIDERS: ATTEND Internal Medicine Gastroenterology
DX: K50.90 Crohn's disease, unspecified, without complications (principal)
CPT/HCPCS: 96365; 96366; Q5103

== ENCOUNTER 2019-04-21 08:56 | Day surgery (SDC) | payer OTHER ==
[2019-04-21] MEDS ORDERED: INFLIXIMAB-DYYB 400 MG in NA CHLORIDE 0.9% 250 ML IV ONE (09:30)
[2019-04-21 11:11] VITALS: O2SAT 96
[2019-04-21 11:13] VITALS: BMI 31.1
[2019-04-21 11:17] VITALS: BP 148/65; TEMP 98.6
== END 2019-04-21 12:13 | disposition home or self-care (01) ==
LOC: DS 08:56
PROVIDERS: ATTEND Internal Medicine Gastroenterology
DX: K50.90 Crohn's disease, unspecified, without complications (principal)
CPT/HCPCS: 96365; 96366; Q5103

== ENCOUNTER 2019-05-12 11:37 | Emergency (ER) | payer OTHER ==
[2019-05-12 13:16] LABS: Basophils % 0.9 % (0-1.3); Eosinophils % 1.2 % (0-4.4); Hematocrit 38.5 % (36.0-45.0); Lymphocytes % 12.8 % (15.3-44.8); MPV 9.1 fL (7.6-11.3); Monocytes % 7.4 % (3.3-12.3); RBC Red Blood Cell Count 4.64 M/uL (3.86-4.86)
[2019-05-12 13:26] LABS: Albumin 3.4 g/dL (3.4-5.0); Bilirubin Direct 0.2 mg/dL (0-0.2); Bilirubin Total 0.5 mg/dL (0.2-1.0); Potassium 4.3 mmol/L (3.5-5.1); Protein, Total 7.3 g/dL (6.4-8.2)
[2019-05-12 14:59] LABS: Urine Blood TRACE (NEG); Urine Glucose NEGATIVE (NEG); Urine Protein NEGATIVE (NEG); Urine Specific Gravity 1.015 (1.005-1.030)
--- NOTE | 2019-05-12 15:08 | EDPHYS ---
Physician Documentation [facility] Name: Mis Carpenter Age: 78 yrs Sex: Female : 1940 Arrival Date: 05/12/2019 Time: 11:38 Bed 23 Private MD: Jesus Estes ED Physician Sammy Fuentes HPI: 05/12 14:31 This 78 yrs old Female presents to ER via Ambulatory with complaints of Fall kdr Injury, Constipation. 14:31 Details of fall: The patient fell from an upright position, while walking. Onset: The kdr symptoms/episode began/occurred gradually, at an unknown time. Associated injuries: The patient sustained Both hands/wrists. Severity of symptoms: At their worst the symptoms were mild. The patient has not experienced similar symptoms in the past. The patient has not recently seen a physician. The patient also states that she has not had a BM in the last five days. She feels she needs an enema - that had fixed it before. . Historical: - Allergies: 12:07 Codeine; aj 12:07 SUCCINYLCHOLINE; aj - Home Meds: 12:07 "Parkinsons med" [Active]; Klonopin Oral [Active]; Pentasa Oral [Active]; aj - PMHx: 12:07 Parkinsons; Crohn's; chronic constipation; aj - PSHx: 12:07 Hysterectomy; hemmoroidectomy; Tubal ligation; key knee replacements; Appendectomy; aj - Immunization history: Last tetanus immunization: - up to date. - Social history:: Smoking status: Patient/guardian denies using tobacco. - Ebola Screening: : Patient negative for fever greater than or equal to 101.5 degrees Fahrenheit, and additional compatible Ebola Virus Disease symptoms Patient denies exposure to infectious person Patient denies travel to an Ebola-affected area in the 21 days before illness onset No symptoms or risks identified at this time. ROS: 14:31 Constitutional: Negative for fever, chills, and weight loss, Eyes: Negative for injury, kdr pain, redness, and discharge, ENT: Negative for injury, pain, and discharge, Neck: Negative for injury, pain, and swelling, Cardiovascular: Negative for chest pain, palpitations, and edema, Respiratory: Negative for shortness of breath, cough, wheezing, and pleuritic chest pain, Back: Negative for injury and pain, : Negative for injury, bleeding, discharge, and swelling, MS/Extremity: Negative for injury and deformity, Skin: Negative for injury, rash, and discoloration, Neuro: Negative for headache, weakness, numbness, tingling, and seizure activity. Psych: Negative for depression, anxiety, suicide ideation, homicidal ideation, and hallucinations, Allergy/Immunology: Negative for hives, rash, and allergies, Endocrine: Negative for neck swelling, polydipsia, polyuria, polyphagia, and marked weight changes, Hematologic/Lymphatic: Negative for swollen nodes, abnormal bleeding, and unusual bruising. 14:31 Abdomen/GI: Positive for constipation, Negative for abdominal pain, nausea and vomiting, abdominal cramps, abdominal distension, anorexia, dysphagia, hematemesis, black/tarry stool, rectal pain, rectal bleeding, bowel incontinence. Exam: 14:31 Constitutional: This is a well developed, well nourished patient who is awake, alert, kdr and in no acute distress. Head/Face: Normocephalic, atraumatic. Eyes: Pupils equal round and reactive to light, extra-ocular motions intact. Lids and lashes normal. Conjunctiva and sclera are non-icteric and not injected. Cornea within normal limits. Periorbital areas with no swelling, redness, or edema. Neck: Trachea midline, no thyromegaly or masses palpated, and no cervical lymphadenopathy. Supple, full range of motion without nuchal rigidity, or vertebral point tenderness. No Meningismus. Chest/axilla: Normal chest wall appearance and motion. Nontender with no deformity. No lesions are appreciated. Cardiovascular: Regular rate and rhythm with a normal S1 and S2. No gallops, murmurs, or rubs. Normal PMI, no JVD. No pulse deficits. Respiratory: Lungs have equal breath sounds bilaterally, clear to auscultation and percussion. No rales, rhonchi or wheezes noted. No increased work of breathing, no retractions or nasal flaring. Abdomen/GI: Soft, non-tender, with normal bowel sounds. No distension or tympany. No guarding or rebound. No evidence of tenderness throughout. Back: No spinal tenderness. No costovertebral tenderness. Full range of motion. Skin: Warm, dry with normal turgor. Normal color with no rashes, no lesions, and no evidence of cellulitis. MS/ Extremity: Pulses equal, no cyanosis. Neurovascular intact. Full, normal range of motion. Neuro: Awake and alert, GCS 15, oriented to person, place, time, and situation. Cranial nerves II-XII grossly intact. Motor strength 5/5 in all extremities. Sensory grossly intact. Cerebellar exam normal. Normal gait. Psych: Awake, alert, with orientation to person, place and time. Behavior, mood, and affect are within normal limits. 14:31 Abdomen/GI: Inspection: abdomen appears normal, Bowel sounds: diminished, in all quadrants, Palpation: soft, nontender, Indicators: McBurney's point is not tender, Escalante's sign is negative. Vital Signs: 12:00 BP 172 / 95; Pulse 78; Resp 20; Temp 98.1; Pulse Ox 98% on R/A; Weight 74.84 kg; Height aj 5 ft. 1 in. (154.94 cm); 13:10 BP 160 / 74; Pulse 79; Resp 16; Pulse Ox 97% on R/A; aj 15:00 BP 149 / 89; Pulse 73; Resp 18; Pulse Ox 100% on R/A; aj 12:00 Body Mass Index 31.18 (74.84 kg, 154.94 cm) aj Nikia Coma Score: 12:00 Eye Response: spontaneous(4). Verbal Response: oriented(5). Motor Response: obeys aj commands(6). Total: 15. Trauma Score (Adult): 12:00 Eye Response: spontaneous(1); Verbal Response: oriented(1); Motor Response: obeys aj commands(2); Systolic BP: > 89 mm Hg(4); Respiratory Rate: 10 to 29 per min(4); Nikia Score: 15; Trauma Score: 12 Procedures: 14:31 Fecal disimpaction: digital disimpaction was performed, with a small amount of stool kdr expressed. The patient tolerated the intervention well, Stool was soft and easy to breakup. She should be able to push this stool out. MDM: 14:31 Data reviewed: vital signs, nurses notes, lab test result(s). Counseling: I had a kdr detailed discussion with the patient and/or guardian regarding: the historical points, exam findings, and any diagnostic results supporting the discharge/admit diagnosis, lab results, the need for outpatient follow up. 15:06 Patient medically screened. [facility] 05/12 12:41 Order name: Basic Metabolic Panel; Complete Time: 13:56 [facility] 05/12 12:41 Order name: CBC with Diff; Complete Time: 13:56 [facility] 05/12 12:41 Order name: Creatinine for Radiology; Complete Time: 13:56 [facility] 05/12 12:41 Order name: Hepatic Function; Complete Time: 13:56 [facility] 05/12 12:41 Order name: Lipase; Complete Time: 13:56 [facility] 05/12 14:56 Order name: Urine Dipstick--Ancillary (enter results) 05/12 12:41 Order name: Misc. Order: Clean bilateral wrist wounds; Complete Time: 13:03 [facility] 05/12 12:41 Order name: IV Saline Lock; Complete Time: 13:03 [facility] 05/12 12:41 Order name: Labs collected and sent; Complete Time: 13:03 [facility] 05/12 12:41 Order name: Misc. Order: Soap suds enema; Complete Time: 13:50 [facility] 05/12 14:56 Order name: Urine Dipstick-Ancillary (obtain specimen); Complete Time: 14:56 ss Administered Medications: No medications were administered Disposition: 05/12/19 15:06 Discharged to Home. Impression: Constipation, Abrasion of left hand, Abrasion of right hand. - Condition is Stable. - Discharge Instructions: Constipation, Adult, [id number], Abrasion, [id number]. - Medication Reconciliation Form, Thank You Letter form. - Follow up: Jesus Estes DO; When: 2 - 3 days; Reason: If symptoms return, Further diagnostic work-up, Recheck today's complaints, Continuance of care, Re-evaluation by your physician. - Problem is an ongoing problem. - Symptoms have improved. Signatures: Dispatcher [employer] EDMayte Amador RN RN Sammy Vargas MD MD kdr Smirch, Shelby, RN RN ss Corrections: (The following items were deleted from the chart) 15:22 15:06 05/12/2019 15:06 Discharged to Home. Impression: Constipation; Abrasion of left aj hand; Abrasion of right hand. Condition is Stable. Forms are Medication Reconciliation Form, Thank You Letter, Antibiotic Education, Prescription Opioid Use. Follow up: Jesus Estes; When: 2 - 3 days; Reason: If symptoms return, Further diagnostic work-up, Recheck today's complaints, Continuance of care, Re-evaluation by your physician. Problem is an ongoing problem. Symptoms have improved. kdr
--- NOTE | 2019-05-12 15:08 | ER ---
Nurse's Notes [facility] Name: Mis Carpenter Age: 78 yrs Sex: Female : 1940 Arrival Date: 05/12/2019 Time: 11:38 Bed 23 Private MD: Jesus Estes Diagnosis: Constipation;Abrasion of left hand;Abrasion of right hand Presentation: 05/12 12:00 Presenting complaint: Patient states: "I fell twice this week because of my Parkinson's aj and both my hands hurt. Also, I haven't had a bowel movement in a week. I am able to move a small amount out at a time.". Care prior to arrival: None. Mechanism of Injury: Fall from standing position. Trauma event details: Injury occurred in the [facility], Injury occurred: at home. Injury occurred: May 06, 2019. 12:00 Acuity: PATI 3 aj 12:00 Method Of Arrival: Ambulatory aj 12:05 Transition of care: patient was not received from another setting of care. Onset of aj symptoms. Risk Assessment: Do you want to hurt yourself or someone else? Patient reports no desire to harm self or others. Initial Sepsis Screen: Does the patient meet any 2 criteria? No. Patient's initial sepsis screen is negative. Does the patient have a suspected source of infection? No. Patient's initial sepsis screen is negative. Trauma Activation: Not Applicable Physician: ED Physician; Name: ; Notified At: ; Arrived At: Physician: General Surgeon; Name: ; Notified At: ; Arrived At: Physician: Radiology; Name: ; Notified At: ; Arrived At: Physician: Respiratory; Name: ; Notified At: ; Arrived At: Physician: Lab; Name: ; Notified At: ; Arrived At: Historical: - Allergies: 12:07 Codeine; aj 12:07 SUCCINYLCHOLINE; aj - Home Meds: 12:07 "Parkinsons med" [Active]; Klonopin Oral [Active]; Pentasa Oral [Active]; aj - PMHx: 12:07 Parkinsons; Crohn's; chronic constipation; aj - PSHx: 12:07 Hysterectomy; hemmoroidectomy; Tubal ligation; key knee replacements; Appendectomy; aj - Immunization history: Last tetanus immunization: - up to date. - Social history:: Smoking status: Patient/guardian denies using tobacco. - Ebola Screening: : Patient negative for fever greater than or equal to 101.5 degrees Fahrenheit, and additional compatible Ebola Virus Disease symptoms Patient denies exposure to infectious person Patient denies travel to an Ebola-affected area in the 21 days before illness onset No symptoms or risks identified at this time. Screenin:00 Abuse screen: Denies threats or abuse. Denies injuries from another. Tuberculosis aj screening: No symptoms or risk factors identified. 15:16 Nutritional screening: No deficits noted. Fall Risk Fall in past 12 months (25 points). aj Primary Survey: 12:00 NO uncontrolled hemorrhage observed. Breathing/Chest: Respiratory pattern: regular, aj Respiratory effort: spontaneous, unlabored. Circulation: Skin color: pink, Skin temperature: warm, dry. Disability Alert. Exposure/Environment: All clothing and personal items were removed. Forensic evidence collection is not deemed to be indicated at this time. Items placed in patient belonging bag. There is no evidence of uncontrolled external bleeding. 13:00 Reassessment Airway Airway Patent Breathing/Chest Respiratory pattern Regular aj Respiratory effort Spontaneous Unlabored Circulation Color Hodgkins Temperature Warm Dry Disability Alert. Assessment: 12:00 General: Appears in no apparent distress. uncomfortable, Behavior is calm, cooperative, aj appropriate for age. Pain: Complains of pain in abdomen, anus, right hand and left hand. Neuro: Level of Consciousness is awake, alert, obeys commands, Oriented to person, place, time, situation, Appropriate for age. Respiratory: Airway is patent Respiratory effort is even, unlabored, Respiratory pattern is regular, symmetrical. GI: Reports constipation. Derm: Skin is intact, is healthy with good turgor, Skin is pink, warm \\T\\ dry. normal. 13:50 Reassessment: Patient assisted onto bedside commode after enema. Reports small bowel aj movement. 14:20 Reassessment: Patient placed back on bedside commode. aj 14:58 Reassessment: Patient appears in no apparent distress at this time. No changes from aj previously documented assessment. Patient and/or family updated on plan of care and expected duration. Pain level reassessed. Patient is alert, oriented x 3, equal unlabored respirations, skin warm/dry/pink. PAtient had 3 medium sized bowel movements, reports relief. Placed back in bed with call light in reach. Gown changed. Vital Signs: 12:00 BP 172 / 95; Pulse 78; Resp 20; Temp 98.1; Pulse Ox 98% on R/A; Weight 74.84 kg; Height aj 5 ft. 1 in. (154.94 cm); 13:10 BP 160 / 74; Pulse 79; Resp 16; Pulse Ox 97% on R/A; aj 15:00 BP 149 / 89; Pulse 73; Resp 18; Pulse Ox 100% on R/A; aj 12:00 Body Mass Index 31.18 (74.84 kg, 154.94 cm) aj Nikia Coma Score: 12:00 Eye Response: spontaneous(4). Verbal Response: oriented(5). Motor Response: obeys aj commands(6). Total: 15. Trauma Score (Adult): 12:00 Eye Response: spontaneous(1); Verbal Response: oriented(1); Motor Response: obeys aj commands(2); Systolic BP: > 89 mm Hg(4); Respiratory Rate: 10 to 29 per min(4); Bolton Score: 15; Trauma Score: 12 ED Course: 11:38 Patient arrived in ED. rg4 11:38 Jesus Estes DO is Private Physician. rg4 11:56 Sammy Fuentes MD is Attending Physician. kdr 12:00 Mayte Keller RN is Primary Nurse. aj 12:00 Patient has correct armband on for positive identification. Placed in gown. Bed in low aj position. Call light in reach. Side rails up X 1. Pulse ox on. NIBP on. 12:00 Patient maintains SpO2 saturation greater than 95% on room air. aj 12:00 Inserted saline lock: 22 gauge in right antecubital area, using aseptic technique. aj Blood collected. 12:00 Thermoregulation: warm blanket given to patient. aj 12:02 Triage completed. aj 12:07 Arm band placed on right wrist. Patient placed in an exam room, on a stretcher, on aj pulse oximetry. 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 aj 14:59 One-on-one care X 90 minutes. aj 15:02 Dressings: Pancho x 1 right hand and left hand non-adherent dressing x 2 right hand and aj left hand. 15:05 Jesus Estes DO is Referral Physician. kdr 15:15 IV discontinued, intact, bleeding controlled, No redness/swelling at site. Pressure aj dressing applied. Administered Medications: No medications were administered Outcome: 15:06 Discharge ordered by . kdr 15:15 Discharged to home via wheelchair, with family. aj 15:15 Condition: good 15:15 Discharge instructions given to patient, family, Instructed on discharge instructions, follow up and referral plans. Demonstrated understanding of instructions, follow-up care. 15:22 Patient left the ED. aj Signatures: Mayte Keller, RN RN Sammy Vargas MD MD kdr Reyna Up rg4 Corrections: (The following items were deleted from the chart) 12:05 12:00 Presenting complaint: Patient states: "I feel twice this week because of my aj Parkinsons and both my hands hurt. Also, I haven't had a bowel movement in a week. I am able to move a small amount out at a time." aj
[2019-05-12 16:13] VITALS: TEMP 98.1
[2019-05-12 16:15] VITALS: BP 149/89; O2SAT 100
== END 2019-05-12 15:22 | disposition home or self-care (01) ==
LOC: ER 11:37
DX: K59.00 Constipation, unspecified (principal); S60.512A Abrasion of left hand, initial encounter; S60.511A Abrasion of right hand, initial encounter; W19.XXXA Unspecified fall, initial encounter; Y93.01 Activity, walking, marching and hiking; Y92.9 Unspecified place or not applicable; Z88.5 Allergy status to narcotic agent; Z88.8 Allergy status to other drugs, medicaments and biological substances; G20 Parkinson's disease
CPT/HCPCS: 36415; 80048; 80076; 81003; 83690; 85025; 99284

== ENCOUNTER 2019-08-15 09:00 | Day surgery (SDC) | payer OTHER, SELFPAY ==
[2019-08-15] MEDS ORDERED: NA CHLORIDE 0.9% 250 ML ONE (09:25)
[2019-08-15] MEDS ORDERED: INFLIXIMAB-DYYB 400 MG in NA CHLORIDE 0.9% 210 ML IV ONE (10:00)
[2019-08-15 11:15] VITALS: O2SAT 95
[2019-08-15 14:01] VITALS: BP 122/66; TEMP 98.1
== END 2019-08-15 12:40 | disposition home or self-care (01) ==
LOC: DS 09:00
PROVIDERS: ATTEND Internal Medicine Gastroenterology
DX: K50.90 Crohn's disease, unspecified, without complications (principal)
CPT/HCPCS: 96365; 96366; Q5103; J7030 ×2

== ENCOUNTER 2019-09-19 11:15 | Emergency (ER) | payer OTHER, SELFPAY ==
[2019-09-19 12:55] LABS: Absolute Lymphocytes (CBC) 1.2 K/uL (0.7-4.9); Basophils % 1.3 % (0-1.3); Hematocrit 38.1 % (36.0-45.0); Lymphocytes % 15.7 % (15.3-44.8); MPV 9.2 fL (7.6-11.3); RBC Red Blood Cell Count 4.75 M/uL (3.86-4.86)
[2019-09-19 13:03] LABS: Albumin 3.4 g/dL (3.4-5.0); Bilirubin Direct 0.2 mg/dL (0-0.2); Bilirubin Total 0.7 mg/dL (0.2-1.0); Potassium 3.9 mmol/L (3.5-5.1); Protein, Total 7.6 g/dL (6.4-8.2)
--- NOTE | 2019-09-19 14:19 | RAD REPORT ---
EXAM DESCRIPTION: CT - Abdomen Pelvis W Contrast - 09/19/2019 2:00 pm CLINICAL HISTORY: Abdominal pain and constipation COMPARISON: 2018 TECHNIQUE: Computed axial tomography of the abdomen pelvis was obtained. 100 cc Isovue-300 was admin istered intravenously. Oral contrast was not requested which limits evaluation of bowel. All CT scans are performed using dose optimization technique as appropriate and may include automated exposure control or mA/KV adjustment according to patient size. FINDINGS: The liver, spleen, pancreas, adrenal and left kidney appear unremarkable. 3.7 centimeter right renal cyst unchanged There is no evidence of diverticulitis. The rectum is distended with stool measuring 7.5 centimeters. There is a large amount of stool presen t throughout remainder the colon. IMPRESSION: Fecal impaction
[2019-09-19] MEDS ORDERED: FLEET ENEMA ADULT PR ONE ×2 (14:54→15:36)
[2019-09-19] MEDS ORDERED: MAGNESIUM CITRATE 300 ML BOT ONE (14:54)
--- NOTE | 2019-09-19 17:36 | ER ---
Nurse's Notes [facility] Name: Mis Carpenter Age: 79 yrs Sex: Female : 1940 Arrival Date: 09/19/2019 Time: 11:18 Bed 23 Private MD: Jesus Estes Diagnosis: Constipation, unspecified Presentation: 09/19 11:28 Presenting complaint: Patient states: constipation x 10 days. Transition of care: sv patient was not received from another setting of care. Onset of symptoms was September 09, 2019. Care prior to arrival: None. 11:28 Method Of Arrival: Wheelchair sv 11:28 Acuity: PATI 3 sv 11:53 Risk Assessment: Do you want to hurt yourself or someone else? Patient reports no tw2 desire to harm self or others. Initial Sepsis Screen: Does the patient meet any 2 criteria? No. Patient's initial sepsis screen is negative. Does the patient have a suspected source of infection? No. Patient's initial sepsis screen is negative. Triage Assessment: 11:53 General: Appears in no apparent distress. Behavior is calm, cooperative, appropriate tw2 for age. Pain: Complains of pain in abdomen. GI: Reports constipation. Historical: - Allergies: 11:29 SUCCINYLCHOLINE; sv - Home Meds: 12:29 "Parkinsons med" [Active]; Pentasa Oral [Active]; Klonopin Oral [Active]; tw2 - PMHx: 11:29 chronic constipation; Crohn's; Parkinsons; sv - PSHx: 11:29 Hysterectomy; hemmoroidectomy; Tubal ligation; Appendectomy; key knee replacements; sv - Immunization history:: Adult Immunizations. - Social history:: Smoking status: . - Ebola Screening: : Patient denies travel to an Ebola-affected area in the 21 days before illness onset. Screenin:52 Abuse screen: Denies threats or abuse. Nutritional screening: No deficits noted. tw2 Tuberculosis screening: No symptoms or risk factors identified. Fall Risk None identified. Assessment: 11:50 General: Appears in no apparent distress. obese, Behavior is calm, cooperative, tw2 appropriate for age. Neuro: Level of Consciousness is awake, alert, obeys commands, Oriented to person, place, time, situation. Cardiovascular: Heart tones S1 S2 Patient's skin is warm and dry. Respiratory: Airway is patent Respiratory effort is even, unlabored, Respiratory pattern is regular, symmetrical, Breath sounds are clear bilaterally. GI: Abdomen is round obese, Bowel sounds present X 4 quads. Abd is soft X 4 quads Reports constipation. : No signs and/or symptoms were reported regarding the genitourinary system. EENT: No signs and/or symptoms were reported regarding the EENT system. Derm: No signs and/or symptoms reported regarding the dermatologic system. Musculoskeletal: Range of motion: intact in all extremities. 13:03 Reassessment: Patient appears in no apparent distress at this time. No changes from tw2 previously documented assessment. Patient and/or family updated on plan of care and expected duration. Pain level reassessed. Patient is alert, oriented x 3, equal unlabored respirations, skin warm/dry/pink. 13:25 Reassessment: pt requesting to sit on bedside commode at this time. pt placed on tw2 bedside commode, pts spouse is next to her. 15:00 Reassessment: Patient appears in no apparent distress at this time. Patient and/or tr5 family updated on plan of care and expected duration. Pain level reassessed. Patient is alert, oriented x 3, equal unlabored respirations, skin warm/dry/pink. Vital Signs: 11:29 BP 162 / 78; Pulse 79; Resp 18; Temp 98.5; Pulse Ox 95% ; Weight 74.39 kg; Height 5 ft. sv 1 in. (154.94 cm); 13:04 BP 158 / 86; Pulse 85; Resp 17; Pulse Ox 95% on R/A; tw2 11:29 Body Mass Index 30.99 (74.39 kg, 154.94 cm) sv ED Course: 11:18 Patient arrived in ED. mr 11:18 Jesus Estes DO is Private Physician. mr 11:28 Triage completed. sv 11:29 Arm band placed on. sv 11:47 Bed in low position. Call light in reach. Side rails up X2. Adult w/ patient. tw2 11:52 Wes Mock PA is PHCP. [facility] 11:52 Sammy Fuentes MD is Attending Physician. [facility] 11:52 Yoselyn Villalba RN is Primary Nurse. tw2 12:18 Radiology exam delayed due to lab results not completed at this time. (BUN/Creatinine). 12:20 Missed attempt(s): 22 gauge in right antecubital area. Bleeding controlled, band aid tw2 applied, catheter tip intact. Inserted saline lock: 22 gauge in left antecubital area, using aseptic technique. Blood collected. 13:57 Report given to ZEHRA Brand. tw2 13:59 CT completed. Patient tolerated procedure well. Patient moved to CT via wheelchair. Patient moved back from CT. 14:01 CT Abd/Pelvis - IV Contrast Only In Process Unspecified. EDMS 17:34 Lobito Ramos MD is Referral Physician. [facility] 18:18 No provider procedures requiring assistance completed. IV discontinued. tr5 Administered Medications: 15:03 Not Given (Patient Refused): Magnesium Citrate Liquid 300 ml PO once tr5 15:03 Drug: Fleet Enema 133 ml Route: SC; tr5 15:30 Follow up: Response: No change in condition tr5 15:40 Drug: Fleet Enema 133 ml Route: SC; tr5 Outcome: 17:35 Discharge ordered by MD. [facility] 18:18 Discharged to home via wheelchair, with family. tr5 18:18 Condition: stable 18:18 Discharge instructions given to patient, family, Instructed on discharge instructions, follow up and referral plans. medication usage, Demonstrated understanding of instructions, follow-up care, medications, Prescriptions given X 1. 18:21 Patient left the ED. tr5 Signatures: Dispatcher [employer] EDMS Montse Jessica RN RN sv Mickail, Joel, PA PA jmm Rivera, Mary mr JarrettMilagros Yoselyn Villalba RN RN tw2 Sunday Last RN RN tr5
--- NOTE | 2019-09-19 17:36 | EDPHYS ---
Physician Documentation [facility] Name: Mis Carpenter Age: 79 yrs Sex: Female : 1940 Arrival Date: 09/19/2019 Time: 11:18 Bed 23 Private MD: Jesus Estes ED Physician Sammy Fuentes HPI: 09/19 11:56 This 79 yrs old Female presents to ER via Wheelchair with complaints of jmm Constipation. 11:56 The patient presents with abdominal pain. Onset: The symptoms/episode began/occurred jmm gradually, 10 day(s) ago. The symptoms do not radiate. Associated signs and symptoms: Pertinent positives: constipation. The symptoms are described as. Modifying factors: The symptoms are alleviated by nothing, the symptoms are aggravated by nothing. This is a 79 year old female with a history of chronic constipation that presents to the ED with complaints of constipation for the past 10 days. Patient states she suffers from chronic constipation which have not been alleviated with home medications. . Historical: - Allergies: 11:29 SUCCINYLCHOLINE; sv - Home Meds: 12:29 "Parkinsons med" [Active]; Pentasa Oral [Active]; Klonopin Oral [Active]; tw2 - PMHx: 11:29 chronic constipation; Crohn's; Parkinsons; sv - PSHx: 11:29 Hysterectomy; hemmoroidectomy; Tubal ligation; Appendectomy; key knee replacements; sv - Immunization history:: Adult Immunizations. - Social history:: Smoking status: . - Ebola Screening: : Patient denies travel to an Ebola-affected area in the 21 days before illness onset. ROS: 11:56 Constitutional: Negative for fever, chills, and weight loss, Cardiovascular: Negative jmm for chest pain, palpitations, and edema, Respiratory: Negative for shortness of breath, cough, wheezing, and pleuritic chest pain. 11:56 Abdomen/GI: Positive for constipation. 11:56 All other systems are negative. Exam: 11:56 Constitutional: This is a well developed, well nourished patient who is awake, alert, jmm and in no acute distress. Head/Face: atraumatic. Eyes: EOMI, no conjunctival erythema appreciated ENT: Moist Mucus Membranes Neck: Trachea midline, Supple Chest/axilla: Normal chest wall appearance and motion. 11:56 Cardiovascular: Rate: normal, Rhythm: regular. 11:56 Respiratory: the patient does not display signs of respiratory distress, Respirations: normal, Breath sounds: are clear throughout. 11:56 Abdomen/GI: Inspection: abdomen appears normal, Bowel sounds: normal, Palpation: abdomen is soft and non-tender, in all quadrants. 11:56 Back: ROM is normal. 11:56 Musculoskeletal/extremity: ROM: intact in all extremities. 11:56 Skin: Appearance: Color: normal in color. 11:56 Neuro: Orientation: is normal, Mentation: is normal, Memory: is normal. 11:56 Psych: Behavior/mood is pleasant, cooperative. Vital Signs: 11:29 BP 162 / 78; Pulse 79; Resp 18; Temp 98.5; Pulse Ox 95% ; Weight 74.39 kg; Height 5 ft. sv 1 in. (154.94 cm); 13:04 BP 158 / 86; Pulse 85; Resp 17; Pulse Ox 95% on R/A; tw2 11:29 Body Mass Index 30.99 (74.39 kg, 154.94 cm) sv Procedures: 17:32 Performed manual disimpaction. Patient tolerated well. Successful. . [facility] MDM: 11:56 Patient medically screened. [facility] 17:32 Data reviewed: vital signs, nurses notes. Counseling: I had a detailed discussion with ann the patient and/or guardian regarding: the historical points, exam findings, and any diagnostic results supporting the discharge/admit diagnosis, lab results, radiology results, the need for outpatient follow up, to return to the emergency department if symptoms worsen or persist or if there are any questions or concerns that arise at home. 09/19 12:06 Order name: Basic Metabolic Panel; Complete Time: 13:29 [facility] 09/19 12:06 Order name: CBC with Diff; Complete Time: 13:29 [facility] 09/19 12:06 Order name: Creatinine for Radiology; Complete Time: 13:29 [facility] 09/19 12:06 Order name: Hepatic Function; Complete Time: 13:29 [facility] 09/19 12:06 Order name: Lipase; Complete Time: 13:29 [facility] 09/19 12:06 Order name: CT Abd/Pelvis - IV Contrast Only; Complete Time: 14:24 [facility] 09/19 12:06 Order name: IV Saline Lock; Complete Time: 12:27 [facility] 09/19 12:06 Order name: Labs collected and sent; Complete Time: 12:27 [facility] Administered Medications: 15:03 Not Given (Patient Refused): Magnesium Citrate Liquid 300 ml PO once tr5 15:03 Drug: Fleet Enema 133 ml Route: DC; tr5 15:30 Follow up: Response: No change in condition tr5 15:40 Drug: Fleet Enema 133 ml Route: DC; tr5 Disposition: 09/20 07:21 Co-signature as Attending Physician, Sammy Fuentes MD I agree with the assessment and kdr plan of care. Disposition: 09/19/19 17:35 Discharged to Home. Impression: Constipation, unspecified. - Condition is Stable. - Discharge Instructions: Constipation, Adult. - Prescriptions for Miralax 17 gram/dose Oral - take 1 packet by ORAL route once daily dilute powder in 8 ounces of water or juice; 1 Pack. - Medication Reconciliation Form, Thank You Letter, Antibiotic Education, Prescription Opioid Use form. - Follow up: Lobito Ramos MD; When: 2 - 3 days; Reason: Recheck today's complaints, Continuance of care, Re-evaluation by your physician. Signatures: Dispatcher [employer] Montse Conde, RN Sammy Ward MD MD kdr Mickail, Joel, PA PA [facility] Yoselyn Villalba RN RN tw2 Sunday Last RN RN tr5 Corrections: (The following items were deleted from the chart) 09/19 18:21 17:35 09/19/2019 17:35 Discharged to Home. Impression: Constipation, unspecified. tr5 Condition is Stable. Forms are Medication Reconciliation Form, Thank You Letter, Antibiotic Education, Prescription Opioid Use. Follow up: Lobito Ramos; When: 2 - 3 days; Reason: Recheck today's complaints, Continuance of care, Re-evaluation by your physician. [facility]
[2019-09-19 18:37] VITALS: TEMP 98.5; O2SAT 95
[2019-09-19 18:38] VITALS: BP 158/86
== END 2019-09-19 18:21 | disposition home or self-care (01) ==
LOC: ER 11:15
DX: K59.00 Constipation, unspecified (principal); G20 Parkinson's disease; Z88.8 Allergy status to other drugs, medicaments and biological substances; Z96.653 Presence of artificial knee joint, bilateral
CPT/HCPCS: 85025; 80048; 36415; 80076; 83690; 74177; 99284; Q9967

== ENCOUNTER 2019-10-15 08:50 | Day surgery (SDC) | payer OTHER, SELFPAY ==
[2019-10-15] MEDS ORDERED: INFLIXIMAB-DYYB 400 MG in NA CHLORIDE 0.9% 250 ML IV ONE (09:00)
[2019-10-15] MEDS ORDERED: NA CHLORIDE 0.9% 250 ML ONE (09:37)
[2019-10-15 15:26] VITALS: TEMP 97.9
[2019-10-15 15:27] VITALS: BMI 30.5
[2019-10-15 15:30] VITALS: BP 165/84; O2SAT 97
== END 2019-10-15 12:10 | disposition home or self-care (01) ==
LOC: DS 08:50
PROVIDERS: ATTEND Internal Medicine Gastroenterology
DX: K50.90 Crohn's disease, unspecified, without complications (principal)
CPT/HCPCS: 96365; 96366; Q5103; J7030 ×2

== ENCOUNTER 2019-12-17 08:25 | Day surgery (SDC) | payer OTHER ==
[2019-12-17] MEDS ORDERED: INFLIXIMAB-DYYB 400 MG in NA CHLORIDE 0.9% 250 ML IV ONE (08:45)
[2019-12-17] MEDS ORDERED: NA CHLORIDE 0.9% 500 ML ONE (08:49)
[2019-12-17 09:07] VITALS: BMI 30.5
[2019-12-17 10:48] VITALS: O2SAT 95
[2019-12-17 11:37] VITALS: BP 133/63; TEMP 97.9
== END 2019-12-17 11:25 | disposition home or self-care (01) ==
LOC: DS 08:25
PROVIDERS: ATTEND Internal Medicine Gastroenterology
DX: K50.90 Crohn's disease, unspecified, without complications (principal)
CPT/HCPCS: 96365; 96366; Q5103; J7030; J7040

== ENCOUNTER 2020-02-09 09:30 | Day surgery (SDC) | payer OTHER, SELFPAY ==
[2020-02-09] MEDS ORDERED: NA CHLORIDE 0.9% 250 ML ONE (09:39)
[2020-02-09 10:00] VITALS: BMI 30.2
[2020-02-09] MEDS ORDERED: INFLIXIMAB-DYYB 400 MG in NA CHLORIDE 0.9% 250 ML IV ONE (10:00)
[2020-02-09 13:00] VITALS: BP 132/73; TEMP 97.5; O2SAT 93
== END 2020-02-09 12:44 | disposition home or self-care (01) ==
LOC: DS 09:30
PROVIDERS: ATTEND Internal Medicine Gastroenterology
DX: K50.90 Crohn's disease, unspecified, without complications (principal)
CPT/HCPCS: 96365; 96366; Q5103; J7030 ×2

== ENCOUNTER 2020-04-05 09:35 | Day surgery (SDC) | payer OTHER, SELFPAY ==
[2020-04-05] MEDS ORDERED: NA CHLORIDE 0.9% 500 ML ONE (09:59)
[2020-04-05] MEDS ORDERED: INFLIXIMAB-DYYB 400 MG in NA CHLORIDE 0.9% 250 ML IV ONE (10:00)
[2020-04-05 10:33] VITALS: BMI 30.2
[2020-04-05 13:20] VITALS: BP 144/81; TEMP 97.2; O2SAT 95
== END 2020-04-05 12:35 | disposition home or self-care (01) ==
LOC: DS 09:35
PROVIDERS: ATTEND Internal Medicine Gastroenterology
DX: K50.90 Crohn's disease, unspecified, without complications (principal)
CPT/HCPCS: 96365; 96366; Q5103; J7030; J7040

== ENCOUNTER 2020-06-07 09:12 | Day surgery (SDC) | payer OTHER, SELFPAY ==
[~2020-06-07 09:12] MED LIST: INFLIXIMAB-DYYB 400 MG in NA CHLORIDE 0.9% 250 ML IV ONE
[2020-06-07] MEDS ORDERED: NA CHLORIDE 0.9% 250 ML ONE (09:50)
[2020-06-07 14:33] VITALS: BMI 32.1
[2020-06-07 14:42] VITALS: BP 151/71; TEMP 98.1; O2SAT 94
== END 2020-06-07 12:50 | disposition home or self-care (01) ==
LOC: DS 09:12
PROVIDERS: ATTEND Internal Medicine Gastroenterology
DX: K50.90 Crohn's disease, unspecified, without complications (principal)
CPT/HCPCS: 96365; 96366; Q5103; J7050 ×2

== ENCOUNTER 2020-08-09 09:14 | Day surgery (SDC) | payer OTHER, SELFPAY ==
[2020-08-09] MEDS ORDERED: INFLIXIMAB-DYYB 400 MG in NA CHLORIDE 0.9% 250 ML IV ONE (09:30)
[2020-08-09 09:35] VITALS: BMI 29.2
[2020-08-09] MEDS ORDERED: NA CHLORIDE 0.9% 250 ML ONE (09:50)
[2020-08-09 13:56] VITALS: BP 112/64; TEMP 97.5; O2SAT 97
== END 2020-08-09 12:50 | disposition home or self-care (01) ==
LOC: DS 09:14
PROVIDERS: ATTEND Internal Medicine Gastroenterology
DX: K50.90 Crohn's disease, unspecified, without complications (principal)
CPT/HCPCS: 96365; 96366; Q5103; J7050 ×2

== ENCOUNTER 2020-10-05 09:07 | Day surgery (SDC) | payer OTHER, SELFPAY ==
[2020-10-05] MEDS ORDERED: INFLIXIMAB-DYYB 400 MG in NA CHLORIDE 0.9% 250 ML IV ONE (10:00)
[2020-10-05 11:16] VITALS: BMI 29.2
[2020-10-05] MEDS ORDERED: NA CHLORIDE 0.9% 250 ML ONE (12:19)
[2020-10-05 12:37] VITALS: BP 124/60; TEMP 96.1; O2SAT 98
== END 2020-10-05 12:40 | disposition home or self-care (01) ==
LOC: DS 09:07
PROVIDERS: ATTEND Internal Medicine Gastroenterology
DX: K50.90 Crohn's disease, unspecified, without complications (principal)
CPT/HCPCS: 96365; 96366; J7050; Q5103

== ENCOUNTER 2020-12-07 09:00 | Day surgery (SDC) | payer OTHER, SELFPAY ==
[2020-12-07 09:30] VITALS: BMI 30.2
[2020-12-07] MEDS ORDERED: INFLIXIMAB-DYYB 400 MG in NA CHLORIDE 0.9% 250 ML IV ONE (09:30)
[2020-12-07] MEDS ORDERED: NA CHLORIDE 0.9% 250 ML ONE (09:48)
[2020-12-07 11:13] VITALS: O2SAT 93
[2020-12-07 12:52] VITALS: BP 122/82; TEMP 98.6
== END 2020-12-07 12:40 | disposition home or self-care (01) ==
LOC: DS 09:00
PROVIDERS: ATTEND Internal Medicine Gastroenterology
DX: K50.90 Crohn's disease, unspecified, without complications (principal)
CPT/HCPCS: 96365; 96366; Q5103; J7050 ×2

== ENCOUNTER 2021-02-03 14:23 | Emergency (ER) | payer OTHER, SELFPAY ==
--- NOTE | 2021-02-03 15:33 | RAD REPORT ---
EXAM DESCRIPTION: RAD - Humerus Left - 02/03/2021 3:25 pm CLINICAL HISTORY: injury Fall, trauma, left arm pain COMPARISON: No comparisons FINDINGS: Mildly impacted fracture involves the proximal left humerus with surrounding soft tissue s welling.
--- NOTE | 2021-02-03 16:02 | RAD REPORT ---
EXAM DESCRIPTION: CT - [id number] - 02/03/2021 3:44 pm CLINICAL HISTORY: Trauma, head and neck injury. fall, head injury COMPARISON: No comparisons TECHNIQUE: Axial 5 mm thick images of the head were obtained. Axial 2 mm thick images of the cervical spine were obtained with sagittal and coronal reconstruction images generated and reviewed. All CT scans are performed using dose optimization technique as appropriate and may include automated exposure control or mA/KV adjustment according to patient size. FINDINGS: CT HEAD WITHOUT CONTRAST: No acute hemorrhage, hydrocephalus or extra-axial collection is identified.Moderate generalized brain atrophy.No areas of brain edema or midline shift. The paranasal sinuses and mastoids are clear.The calvarium is intact. CT CERVICAL SPINE WITHOUT CONTRAST: No fracture or subluxation.Mild to moderate lower cervical degenerative changes are present.No prever tebral soft tissues swelling is identified. IMPRESSION: No acute intracranial or cervical spine findings. Mild to moderate lower cervical degenerative changes.
--- NOTE | 2021-02-03 16:05 | ER ---
Nurse's Notes [facility] Name: Mis Carpenter Age: 80 yrs Sex: Female : 1940 Arrival Date: 02/03/2021 Time: 14:29 Bed 20 Private MD: Diagnosis: Humerus fracture Presentation: 02/03 14:30 Chief complaint: EMS states: "pt reported a potential fall yesterday. she does not jd3 rememberer what happened other than her standing over her waking her up. pt felt fine initially, but today she has been having left arm pain.". Coronavirus screen: At this time, the client does not indicate any symptoms associated with coronavirus-19. Ebola Screen: Patient negative for fever greater than or equal to 101.5 degrees Fahrenheit, and additional compatible Ebola Virus Disease symptoms. Initial Sepsis Screen: Does the patient meet any 2 criteria? No. Patient's initial sepsis screen is negative. Does the patient have a suspected source of infection? No. Patient's initial sepsis screen is negative. Risk Assessment: Do you want to hurt yourself or someone else? Patient reports no desire to harm self or others. Onset of symptoms was February 02, 2021. 14:30 Method Of Arrival: EMS: [facility] jd3 14:30 Acuity: PATI 3 jd3 Historical: - Allergies: 14:34 SUCCINYLCHOLINE; jd3 - Home Meds: 14:34 "Parkinsons med" [Active]; Pentasa Oral [Active]; Aspirin Oral [Active]; Albuterol Inhl jd3 [Active]; - PMHx: 14:34 Crohn's; chronic constipation; Parkinsons; Asthma; jd3 - PSHx: 14:34 Hysterectomy; hemmoroidectomy; Tubal ligation; Appendectomy; key knee replacements; jd3 - Immunization history:: Adult Immunizations up to date. - Social history:: Smoking status: Patient/guardian denies using tobacco, but has a distant history of tobacco abuse. Screenin:45 Abuse screen: Denies threats or abuse. Denies injuries from another. Nutritional ca1 screening: No deficits noted. Tuberculosis screening: No symptoms or risk factors identified. Fall Risk Fall in past 12 months (25 points). Secondary diagnosis (15 points) Parkinson's. IV access (20 points). Total Mathews Fall Scale indicates High Risk Score (45 or more points). Fall prevention measures have been instituted. Side Rails Up X 2 Family Present and informed to notify staff if the need to leave the bedside As available patient and family educated on Fall Prevention Program and Strategies. Assessment: 14:45 General: Appears in no apparent distress. comfortable, Behavior is calm, cooperative, ca1 appropriate for age. Pain: Complains of pain in left arm Pain began 1 day ago. Neuro: Level of Consciousness is awake, alert, obeys commands, Oriented to person, place, time, situation. Cardiovascular: Heart tones S1 S2 present Capillary refill < 3 seconds Patient's skin is warm and dry. Respiratory: Airway is patent Respiratory effort is even, unlabored, Respiratory pattern is regular, agonal Breath sounds are clear bilaterally. GI: Abdomen is round non-distended, Bowel sounds present X 4 quads. Abd is soft and non tender X 4 quads. : No signs and/or symptoms were reported regarding the genitourinary system. EENT: No signs and/or symptoms were reported regarding the EENT system. Derm: Skin is intact, is healthy with good turgor, Skin is pink, warm \\T\\ dry. Musculoskeletal: Circulation, motion, and sensation intact. Capillary refill < 3 seconds. 15:53 Reassessment: Patient appears in no apparent distress at this time. Patient and/or ca1 family updated on plan of care and expected duration. Pain level reassessed. Patient is alert, oriented x 3, equal unlabored respirations, skin warm/dry/pink. 16:34 Reassessment: Patient appears in no apparent distress at this time. Patient is alert, ca1 oriented x 3, equal unlabored respirations, skin warm/dry/pink. Vital Signs: 14:34 BP 140 / 72; Pulse 72; Resp 19 S; Temp 99.2(O); Pulse Ox 86% on R/A; Weight 73.94 kg jd3 (R); Height 5 ft. 1 in. (154.94 cm) (R); Pain 2/10; 14:34 Pulse Ox 94% on 2 lpm NC; jd3 15:53 BP 104 / 50; Pulse 101; Resp 16 S; Pulse Ox 94% on 2 lpm NC; ca1 16:34 BP 105 / 57; Pulse 96; Resp 16 S; Pulse Ox 94% on R/A; ca1 14:34 Body Mass Index 30.80 (73.94 kg, 154.94 cm) jd3 ED Course: 14:29 Patient arrived in ED. em1 14:33 Triage completed. jd3 14:35 Wes Mock PA is PHCP. [facility] 14:35 Sammy Fuentes MD is Attending Physician. jmm 14:38 Arm band placed on. jd3 14:39 Jocelyne Duran, ZEHRA is Primary Nurse. ca1 14:45 Patient has correct armband on for positive identification. Placed in gown. Bed in low ca1 position. Call light in reach. Side rails up X2. Pulse ox on. NIBP on. Warm blanket given. 15:24 Humerus Left XRAY In Process Unspecified. EDMS 15:44 CT Head C Spine In Process Unspecified. EDMS 16:04 Timur Rowe MD is Referral Physician. jmm 16:34 No provider procedures requiring assistance completed. Patient did not have IV access ca1 during this emergency room visit. Sling applied to left arm. Administered Medications: No medications were administered Outcome: 16:04 Discharge ordered by . m 16:35 Discharged to home via wheelchair, with significant other. ca1 16:35 Condition: stable 16:35 Discharge instructions given to patient, significant other, Instructed on discharge instructions, follow up and referral plans. no drinking with medication, no driving heavy equipment, medication usage, Demonstrated understanding of instructions, follow-up care, medications, Prescriptions given X 1. 16:35 Patient left the ED. ca1 Signatures: Dispatcher [employer] EDNC Wes Mock PA PA Tyron Flaherty em1 Ezio Thorne RN RN j Jocelyne Duran RN RN ca1
--- NOTE | 2021-02-03 16:05 | EDPHYS ---
Physician Documentation [facility] Name: Mis Carpenter Age: 80 yrs Sex: Female : 1940 Arrival Date: 02/03/2021 Time: 14:29 Bed 20 Private MD: ED Physician Sammy Fuentes HPI: 02/03 14:40 This 80 yrs old Female presents to ER via EMS with complaints of shoulder jmm pain. 14:40 Details of fall: The patient fell from an upright position, while walking. Onset: The jmm symptoms/episode began/occurred acutely, just prior to arrival. Associated injuries: The patient sustained shoulder pain. This is a 80 year old female with a history of parkinsons that presents to the ED after a mechanical fall which occurred after bumping into her fax machine. Pain is mainly to her left shoulder but states she did hit her head. . Historical: - Allergies: 14:34 SUCCINYLCHOLINE; jd3 - Home Meds: 14:34 "Parkinsons med" [Active]; Pentasa Oral [Active]; Aspirin Oral [Active]; Albuterol Inhl jd3 [Active]; - PMHx: 14:34 Crohn's; chronic constipation; Parkinsons; Asthma; jd3 - PSHx: 14:34 Hysterectomy; hemmoroidectomy; Tubal ligation; Appendectomy; key knee replacements; jd3 - Immunization history:: Adult Immunizations up to date. - Social history:: Smoking status: Patient/guardian denies using tobacco, but has a distant history of tobacco abuse. ROS: 14:40 Constitutional: Negative for fever, chills, and weight loss, Cardiovascular: Negative jmm for chest pain, palpitations, and edema, Respiratory: Negative for shortness of breath, cough, wheezing, and pleuritic chest pain. 14:40 MS/extremity: Positive for injury or acute deformity, pain. 14:40 All other systems are negative. Exam: 14:40 Constitutional: This is a well developed, well nourished patient who is awake, alert, jmm and in no acute distress. Head/Face: atraumatic. Eyes: EOMI, no conjunctival erythema appreciated ENT: Moist Mucus Membranes Neck: Trachea midline, Supple Chest/axilla: Normal chest wall appearance and motion. Cardiovascular: Regular rate and rhythm. No edema appreciated Respiratory: Normal respirations, no respiratory distress appreciated Abdomen/GI: Non distended, soft Back: Normal ROM Skin: General appearance color normal 14:40 Musculoskeletal/extremity: ROM: left shoudler held in adduction and internal rotations, swelling and ecchymosis noted, full left safety equipment tester strength, compartments are soft, NVI. 14:40 Skin: Appearance: Color: normal in color. 14:40 Neuro: Orientation: is normal, Mentation: is normal, Memory: is normal. Vital Signs: 14:34 BP 140 / 72; Pulse 72; Resp 19 S; Temp 99.2(O); Pulse Ox 86% on R/A; Weight 73.94 kg jd3 (R); Height 5 ft. 1 in. (154.94 cm) (R); Pain 2/10; 14:34 Pulse Ox 94% on 2 lpm NC; jd3 15:53 BP 104 / 50; Pulse 101; Resp 16 S; Pulse Ox 94% on 2 lpm NC; ca1 16:34 BP 105 / 57; Pulse 96; Resp 16 S; Pulse Ox 94% on R/A; ca1 14:34 Body Mass Index 30.80 (73.94 kg, 154.94 cm) jd3 MDM: 14:36 Patient medically screened. [facility] 16:03 Data reviewed: vital signs, nurses notes. Counseling: I had a detailed discussion with ann the patient and/or guardian regarding: the historical points, exam findings, and any diagnostic results supporting the discharge/admit diagnosis, radiology results, the need for outpatient follow up, to return to the emergency department if symptoms worsen or persist or if there are any questions or concerns that arise at home. ED course: Patient is alert and non toxic in appearance in the ED. Xray reveals humeral head fracture. Advised to follow up with ortho. patient understood and agrees with the plan of care. . 02/03 14:37 Order name: CT Head C Spine; Complete Time: 16:03 [facility] 02/03 14:37 Order name: Humerus Left XRAY; Complete Time: 15:36 [facility] 02/03 16:03 Order name: Sling; Complete Time: 16:34 [facility] Administered Medications: No medications were administered Disposition: 02/03/21 16:04 Discharged to Home. Impression: Humerus fracture. - Condition is Stable. - Discharge Instructions: Humerus Fracture Treated With Immobilization. - Prescriptions for Ultracet 37.5- 325 mg Oral Tablet - take 1 tablet by ORAL route every 6 hours - for up to 5 days; do not exceed 8 tablets per day.; 12 tablet. - Medication Reconciliation Form, Thank You Letter, Antibiotic Education, Prescription Opioid Use form. - Follow up: Timur Rowe MD; When: 2 - 3 days; Reason: Recheck today's complaints, Continuance of care, Re-evaluation by your physician. Addendum: 02/05/2021 07:17 Co-signature as Attending Physician, Sammy Fuentes MD I agree with the assessment and k dr plan of care. Signatures: Dispatcher [employer] EDMS Sammy Fuentes MD MD kdr Mickail, Joel, PA PA jmm Davies, Jonathon, RN RN jd3 Jocelyne Duran RN RN ca1 Corrections: (The following items were deleted from the chart) 02/03 16:35 16:04 02/03/2021 16:04 Discharged to Home. Impression: Humerus fracture. Condition is ca1 Stable. Forms are Medication Reconciliation Form, Thank You Letter, Antibiotic Education, Prescription Opioid Use. Follow up: Timur Rowe; When: 2 - 3 days; Reason: Recheck today's complaints, Continuance of care, Re-evaluation by your physician. ann
== END 2021-02-03 16:35 | disposition home or self-care (01) ==
LOC: ER 14:23
PROC: 2W39X1Z Immobilization of Left Upper Extremity using Splint (ICD-10-PCS; principal; 2021-02-03)
DX: S42.202A Unspecified fracture of upper end of left humerus, initial encounter for closed fracture (principal); W18.09XA Striking against other object with subsequent fall, initial encounter; Y93.01 Activity, walking, marching and hiking; Y92.9 Unspecified place or not applicable; G20 Parkinson's disease; Z79.82 Long term (current) use of aspirin; Z88.8 Allergy status to other drugs, medicaments and biological substances; Z96.653 Presence of artificial knee joint, bilateral
CPT/HCPCS: 70450; 72125; 99284

== ENCOUNTER 2021-02-22 09:09 | Day surgery (SDC) | payer OTHER, SELFPAY ==
[2021-02-22] MEDS ORDERED: INFLIXIMAB-DYYB 400 MG in NA CHLORIDE 0.9% 250 ML IV ONE (09:30)
[2021-02-22] MEDS ORDERED: NA CHLORIDE 0.9% 250 ML ONE (09:59)
[2021-02-22 10:08] VITALS: BMI 30.2
[2021-02-22 12:53] VITALS: BP 140/66; TEMP 97; O2SAT 92
== END 2021-02-22 12:20 | disposition home or self-care (01) ==
LOC: DS 09:09
PROVIDERS: ATTEND Internal Medicine Gastroenterology
DX: K50.90 Crohn's disease, unspecified, without complications (principal)
CPT/HCPCS: 96365; 96366; Q5103; J7050 ×2

== ENCOUNTER 2021-04-08 09:34 | Day surgery (SDC) | payer OTHER ==
[2021-04-08] MEDS ORDERED: INFLIXIMAB-DYYB 400 MG in NA CHLORIDE 0.9% 250 ML IV ONE (10:00)
[2021-04-08] MEDS ORDERED: NA CHLORIDE 0.9% 250 ML ONE (10:18)
[2021-04-08 12:25] VITALS: BMI 30.2
[2021-04-08 13:33] VITALS: BP 166/59; TEMP 98.1; O2SAT 98
== END 2021-04-08 13:00 | disposition home or self-care (01) ==
LOC: DS 09:34
PROVIDERS: ATTEND Internal Medicine Gastroenterology
DX: K50.90 Crohn's disease, unspecified, without complications (principal)
CPT/HCPCS: 96365; 96366; Q5103; J7050 ×2

== ENCOUNTER 2021-06-07 09:47 | Day surgery (SDC) | payer OTHER, SELFPAY ==
[2021-06-07] MEDS ORDERED: INFLIXIMAB-DYYB 400 MG in NA CHLORIDE 0.9% 250 ML IV ONE (10:00)
[2021-06-07 12:23] VITALS: BMI 30.6
[2021-06-07] MEDS ORDERED: NA CHLORIDE 0.9% 50 ML ONE (13:28)
[2021-06-07 14:17] VITALS: BP 174/74; TEMP 97.5; O2SAT 94
== END 2021-06-07 13:20 | disposition home or self-care (01) ==
LOC: DS 09:47
PROVIDERS: ATTEND Internal Medicine Gastroenterology
DX: K50.90 Crohn's disease, unspecified, without complications (principal)
CPT/HCPCS: 96365; 96366; Q5103; J7050

== ENCOUNTER 2021-07-22 10:20 | Emergency (ER) | payer OTHER ==
[2021-07-22 11:06] LABS: Protime INR 1.15
[2021-07-22 11:41] LABS: ALT/SGPT 19 U/L (12-78); Albumin 3.4 g/dL (3.4-5.0); Alkaline Phosphatase 69 U/L (45-117); BUN Blood Urea Nitrogen 34 mg/dL (7-18); Bicarbonate 26 mmol/L (21-32); Bilirubin Direct 0.2 mg/dL (0-0.2); Bilirubin Total 0.6 mg/dL (0.2-1.0); Glucose Level 78 mg/dL (74-106); NT PRO-BNP 463 pg/mL (<450); Protein, Total 9.3 g/dL (6.4-8.2); Sodium Level 139 mmol/L (136-145); Troponin (Emerg Dept Use Only) < 0.02 ng/mL (0.0-0.045)
[2021-07-22] MEDS ORDERED: MORPHINE 2 MG/ML SYR ONE (11:45)
[2021-07-22 11:49] LABS: Absolute Lymphocytes (CBC) 1.2 K/uL (0.7-4.9); Basophils % 1.1 % (0-1.3); Hematocrit 46.2 % (36.0-45.0); MPV 9.1 fL (7.6-11.3); RBC Red Blood Cell Count 5.56 M/uL (3.86-4.86)
[2021-07-22 11:52] LABS: AST/SGOT 23 U/L (15-37); Magnesium 2.3 mg/dL (1.8-2.4); Potassium 3.8 mmol/L (3.5-5.1)
[2021-07-22 12:31] LABS: Anisocytosis 1+; Blood Morphology Comment NOTED (NOT SEEN); Platelet Estimate ADEQ
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
--- NOTE | 2021-07-22 14:37 | EDPHYS ---
Physician Documentation [facility] Name: Mis Carpenter Age: 81 yrs Sex: Female : 1940 Arrival Date: 07/22/2021 Time: 10:21 Bed 6 Private MD: ED Physician Sammy Fuentes HPI: 07/22 20:03 This 81 yrs old Female presents to ER via EMS with complaints of Chest Pain, kdr SOCIAL ISSUES. 20:03 The patient or guardian reports chest pain that is located primarily in the anterior kdr chest wall, right. Onset: today, at an unknown time. The pain does not radiate. Associated signs and symptoms: Pertinent positives: None. shortness of breath, Pertinent negatives: abdominal pain, diaphoresis, headache, lightheadedness, recent travel, syncope, vomiting. The chest pain is described as aching, dull. Duration: The patient or guardian reports multiple episodes, that are intermittent, that wax and wane, with no pattern. Severity of pain: At its worst the pain was mild in the emergency department the pain has improved mildly. The patient has experienced similar episodes in the past, a few times. Historical: - Allergies: 10:24 Succinylcholine; bp - Home Meds: 10:24 Pentasa Oral [Active]; Aspirin Oral [Active]; Albuterol Inhl [Active]; "Parkinsons med" bp [Active]; - PMHx: 10:24 Asthma; chronic constipation; Crohn's; Parkinsons; bp - Immunization history:: Adult Immunizations up to date. - Social history:: Smoking status: unknown. ROS: 20:03 Constitutional: Negative for fever, chills, and weight loss, Eyes: Negative for injury, kdr pain, redness, and discharge, ENT: Negative for injury, pain, and discharge, Neck: Negative for injury, pain, and swelling, Respiratory: Negative for shortness of breath, cough, wheezing, and pleuritic chest pain, Abdomen/GI: Negative for abdominal pain, nausea, vomiting, diarrhea, and constipation, Back: Negative for injury and pain, : Negative for injury, bleeding, discharge, and swelling, MS/Extremity: Negative for injury and deformity, Skin: Negative for injury, rash, and discoloration, Neuro: Negative for headache, weakness, numbness, tingling, and seizure activity. Psych: Negative for depression, anxiety, suicide ideation, homicidal ideation, and hallucinations, Allergy/Immunology: Negative for hives, rash, and allergies, Endocrine: Negative for neck swelling, polydipsia, polyuria, polyphagia, and marked weight changes, Hematologic/Lymphatic: Negative for swollen nodes, abnormal bleeding, and unusual bruising. 20:03 Cardiovascular: Positive for chest pain, Negative for edema, orthopnea, palpitations, paroxysmal nocturnal dyspnea. Exam: 20:03 Constitutional: This is a well developed, well nourished patient who is awake, alert, kdr and in no acute distress. Head/Face: Normocephalic, atraumatic. Neck: Trachea midline, no thyromegaly or masses palpated, and no cervical lymphadenopathy. Supple, full range of motion without nuchal rigidity, or vertebral point tenderness. No Meningismus. Chest/axilla: Normal chest wall appearance and motion. Nontender with no deformity. No lesions are appreciated. Cardiovascular: Regular rate and rhythm with a normal S1 and S2. No gallops, murmurs, or rubs. Normal PMI, no JVD. No pulse deficits. Abdomen/GI: Soft, non-tender, with normal bowel sounds. No distension or tympany. No guarding or rebound. No evidence of tenderness throughout. Back: No spinal tenderness. No costovertebral tenderness. Full range of motion. Skin: Warm, dry with normal turgor. Normal color with no rashes, no lesions, and no evidence of cellulitis. MS/ Extremity: Pulses equal, no cyanosis. Neurovascular intact. Full, normal range of motion. Neuro: Awake and alert, GCS 15, oriented to person, place, time, and situation. Cranial nerves II-XII grossly intact. Motor strength 4/5 in lower extremities, 5/5 in upper extremities. Sensory grossly intact. Cerebellar exam grossly normal. Psych: Awake, alert, with orientation to person, place and time. Behavior, mood, and affect are within normal limits. 20:03 Respiratory: the patient does not display signs of respiratory distress, Respirations: normal, Breath sounds: no acute changes, rales, that are mild, are scattered. Vital Signs: 10:22 BP 142 / 84; Pulse 99; Resp 17; Temp 98.2; Pulse Ox 98% on R/A; bp 11:08 BP 122 / 69; Pulse 94; Resp 16; Pulse Ox 93% on R/A; bp 12:16 BP 131 / 83; Pulse 98; Resp 17; Pulse Ox 96% ; jl7 13:00 BP 118 / 69; Pulse 99; Resp 14; Pulse Ox 95% ; bp 14:00 BP 134 / 44; Pulse 95; Resp 15; Pulse Ox 97% ; bp MDM: 14:37 Patient medically screened. [facility] 20:03 Data reviewed: vital signs, lab test result(s), EKG, radiologic studies. Counseling: I kdr had a detailed discussion with the patient and/or guardian regarding: the historical points, exam findings, and any diagnostic results supporting the discharge/admit diagnosis, lab results, radiology results, the need for outpatient follow up. ED course: Patient was happy with the care provided and the plan for discharge and follow-up. He has been did mention or ask whether we could give her anything to calm her down. He says she is becoming hard to manage. I indicated that I prefer he follow-up with Dr. Estes to manage that situation. Dr. Estes subsequently called after the patient had departed and I reviewed the findings and presentation with him. I relayed the was concerned about the patient's behavior. 07/22 10:52 Order name: Basic Metabolic Panel; Complete Time: 12:35 [facility] 07/22 10:52 Order name: CBC with Diff; Complete Time: 12:35 [facility] 07/22 10:52 Order name: LFT's; Complete Time: 12:35 [facility] 07/22 10:52 Order name: Magnesium; Complete Time: 12:35 [facility] 07/22 10:52 Order name: NT PRO-BNP; Complete Time: 12:35 [facility] 07/22 10:52 Order name: PT-INR; Complete Time: 12:35 [facility] 07/22 10:52 Order name: Troponin (emerg Dept Use Only); Complete Time: 12:35 [facility] 07/22 12:31 Order name: Manual Differential; Complete Time: 12:35 [facility] 07/22 12:36 Order name: Troponin (emerg Dept Use Only); Complete Time: 14:36 [facility] 07/22 12:38 Order name: SARS-COV-2 RT PCR; Complete Time: 12:42 [facility] 07/22 10:30 Order name: Cardiac monitoring; Complete Time: 10:35 [facility] 07/22 10:30 Order name: EKG - Nurse/Tech; Complete Time: 10:34 [facility] 07/22 10:52 Order name: EKG; Complete Time: 10:52 [facility] 07/22 10:52 Order name: IV Saline Lock; Complete Time: 11: [facility] 07/22 10:52 Order name: Labs collected and sent; Complete Time: 11: [facility] 07/22 10:52 Order name: O2 Per Protocol; Complete Time: : [facility] 07/22 10:52 Order name: O2 Sat Monitoring; Complete Time: : [facility] 07/22 13:33 Order name: Labs - recollect needed; Complete Time: 14:00 mt Administered Medications: 10:43 CANCELLED (Physician Discretion): morphine 2 mg IVP once; (PAIN>8) RASS on ADMN: bp Combtv4, Very Agttd3, Agttd2, Rstlss1, AlertClm0, Drwsy-1, LtSdtn-2, ModSdtn-3, DpSdtn-4, UnArsble-5 x2 10:44 CANCELLED (Physician Discretion): Zofran (Ondansetron) 4 mg IVP once; over 2 minutes bp 11:26 Drug: morphine 1 mg Route: IVP; Site: left forearm; bp 14:01 Follow up: Response: Pain is decreased bp Disposition Summary: 07/22/21 14:37 Discharge Ordered Location: Home kdr Problem: new kdr Symptoms: have improved kdr Condition: Stable kdr Diagnosis - Chest pain, unspecified kdr Followup: kdr - With: Private Physician - When: 2 - 3 days - Reason: If symptoms return, Further diagnostic work-up, Recheck today's complaints, Continuance of care, Re-evaluation by your physician Followup: kdr - With: Zhen Dyer MD - When: 1 - 2 days - Reason: If symptoms return, Further diagnostic work-up, Recheck today's complaints, Continuance of care, Re-evaluation by your physician Discharge Instructions: - Discharge Summary Sheet kdr - Nonspecific Chest Pain, Adult, [id number] kdr Forms: - Medication Reconciliation Form kdr - Thank You Letter kdr Signatures: Dispatcher [employer] EDMS Rittger, Sammy, MD MD kdr Verma, Nanda mt Austin, [place], RN RN bp Corrections: (The following items were deleted from the chart) 10:43 10:34 morphine 2 mg IVP once; (PAIN>8) RASS on ADMN: Combtv4, Very Agttd3, Agttd2, bp Rstlss1, AlertClm0, Drwsy-1, LtSdtn-2, ModSdtn-3, DpSdtn-4, UnArsble-5 x2 ordered. kdr 10:44 10:34 Zofran (Ondansetron) 4 mg IVP once; over 2 minutes ordered. kdr bp 10:45 10:30 Accucheck ordered. kdr mt 10:46 10:30 IV Saline Lock - Large Bore ordered. kdr mt 10:46 10:30 Labs collected and sent ordered. kdr mt 10:46 10:30 Oxygen Per Protocol ordered. kdr mt 10:46 10:30 O2 Sat Monitoring ordered. kdr mt 10:46 10:30 Urine Dipstick-Ancillary ordered. kdr mt 10:47 10:30 AMYLASE, SERUM+C.LAB.BRZ ordered. EDMS EDMS 10:47 10:30 BASIC METABOLIC PANEL+C.LAB.BRZ ordered. EDMS EDMS 10:47 10:30 BLOOD CULTURE*+BA.LAB.BRZ ordered. EDMS EDMS 10:47 10:30 CREATINE PHOSPHOKINASE+C.LAB.BRZ ordered. EDMS EDMS 10:47 10:30 CKMB+C.LAB.BRZ ordered. EDMS EDMS 10:47 10:30 HEPATIC FUNCTION+C.LAB.BRZ ordered. EDMS EDMS 10:47 10:30 LIPASE+C.LAB.BRZ ordered. EDMS EDMS 10:47 10:30 TROPONIN (EMERG DEPT USE ONLY)+C.LAB.BRZ ordered. EDMS EDMS 10:48 10:30 CBC+H.LAB.BRZ ordered. EDMS EDMS 10:48 10:30 LACTATE+C.LAB.BRZ ordered. EDMS EDMS 10:48 10:30 PCT+C.LAB.BRZ ordered. EDMS EDMS 10:48 10:30 PROTIME (+INR)+COAG.LAB.BRZ ordered. EDMS EDMS 10:48 10:30 PTT, ACTIVATED+COAG.LAB.BRZ ordered. EDMS EDMS 10:59 10:31 CORONAVIRUS+MR.LAB.BRZ ordered. EDMS EDMS 11:18 10:30 Chest Single View+RAD.RAD.BRZ ordered. EDMS EDMS 11:18 10:31 Pelvis+RAD.RAD.BRZ ordered. EDMS EDMS 11:18 10:31 Hip Left 2 View+RAD.RAD.BRZ ordered. EDMS EDMS 12:17 10:52 Chest Single View+RAD.RAD.BRZ ordered. EDMS EDMS
[2021-07-22 15:05] VITALS: TEMP 98.2
[2021-07-22 15:10] VITALS: BP 134/44; O2SAT 97
== END 2021-07-22 14:55 | disposition home or self-care (01) ==
LOC: ER 10:20
DX: R07.9 Chest pain, unspecified (principal); Z20.822 Contact with and (suspected) exposure to COVID-19; G20 Parkinson's disease; Z88.8 Allergy status to other drugs, medicaments and biological substances
CPT/HCPCS: 93005; 85025; 80048; 36415; 83735; 85610; 80076; 84484 ×2; 83880; 96374; 99285; U0003; J2270